=== PATIENT | female | born 1930 | race Caucasian/White ===

== ENCOUNTER 2016-07-07 14:24 | Inpatient (IN) | payer MEDICARE ==
[2016-07-07] VITALS (10 sets, daily range): BP systolic 107–151; BP diastolic 34–70; PULSE 106–130; RESP 20–37; O2SAT 88–99
[~2016-07-07] VITALS: Ht 157.5 cm; Wt 45.5 kg
[~2016-07-07 14:24] MED LIST: ALBU8.5H2 INHALATION; BECL8.7A6 INHALATION; DEXT1DRO8 BOTH_EYES; HYDR-656 PO; LEVO88TA4 PO; PANT40TA3 PO; SUCR1TAB30 PO
--- NOTE | 2016-07-07 14:54 | ED.REPORT ---
HPI-General Illness Date of Service July 07, 2016 ED Provider: Yan Quarles MD Pt is an 85 year old female with a hx of COPD presenting to the ED via EMS complaining of generalized weakness onset today. Associated symptoms include fatigue, SOB, chest pain. Denies any new pain, fever, cough, abdominal pain, nausea, vomiting, or any injury. The pt's medications were recently changed, but medics were unsure what medications. The pt reports that she is usually ambulatory and that she was up and walking earlier today, but is now much too weak. The pt saw her urologist on Friday and was put on tolterodine which she took for the first time this morning. Nursing Notes Stated Complaint: GENERALIZED WEAKNESS Chief Complaint: Generalized weakness Nursing Notes Reviewed: Yes ([employer], [employer]anc[employer] not reconciled) Allergies: Coded Allergies: cephalexin (Verified Allergy, Severe, Anaphylaxis, 10/17/15) DAUGHTER SAYS throat closes up Scheduled Beclomethasone Dipropionate (Qvar) 8.7 Gm Aer.w.adap 1 PUFF INHALATION BID Dextran 70/Hypromellose/Pf (Artificial Tears Drops) 1 Each Droperette 1 DROP BOTH_EYES BID Levothyroxine (Levothyroxine) 88 Mcg Tablet 88 MCG PO DAILY Pantoprazole DR (Pantoprazole DR) 40 Mg Tablet.dr 40 MG PO BIDAC Sucralfate (Carafate) 1 Gm Tablet 1,000 MG PO QID Scheduled PRN Albuterol HFA (Proair HFA) 8.5 Gm Hfa.aer.ad 2 PUFFS INHALATION Q4H PRN PRN For Wheezing hydrOXYzine Hcl (HydrOXYzine Hcl) 25 Mg Tablet 25 MG PO QID PRN PRN For Itching General Time Seen by MD: 14:50 Chief Complaint Weakness Hx Obtained From: Patient, EMS Arrived By: Ambulance Sudden in Onset?: Yes Onset Occurred: Just prior to arrival Symptom Duration: Since onset Severity: Current: No pain currently Severity: Maximum: No pain Recent Healthcare: No recent doctor visit, No recent hospitalization Similar Sx Previous: No Past Medical History Past Medical History Right shoulder pain Hypothyroidism Peptic ulcer disease with GI bleed September 2015 Reports: COPD, GERD Past Surgical History Appendectomy EGD large 3 cm gastric ulcers and antrum with stigmata of bleeding requiring APC and clinical progress normal coagulation therapy on EGD 09/2015 Reports: Cholecystectomy Smoking History Former Smoker Social History [place] in [place] on [address]. She presents with an incomplete POLST indicates DO NOT RESUSCITATE in the setting of cardiac arrest, but is otherwise blank. on 07/07/16 I discussed CODE STATUS with the daughter over the telephone, and unable to clarify the patient is DO NOT RESUSCITATE/DO NOT RESUSCITATE, with limited interventions not including dialysis. IV fluids, medications, etc. are appropriate Other Social History: Good social support Review of Systems Full Review of Systems Constitutional: Reports: Fatigue, Denies: Fever Respiratory: Reports: Shortness of breath, Denies: Non-productive cough Cardiovascular: Reports: Chest pain GI: Denies: Abdominal pain, Nausea, Vomiting Neurologic: Reports: Weakness Complete sys rev & neg: except as marked. Physical Exam Vital Signs Vital Signs Date Time Temp Pulse Resp B/P Pulse Ox O2 Delivery O2 Flow Rate FiO2 07/07/16 18:02 93 Nasal Cannula 07/07/16 18:01 106 37 107/34 88 Room Air 07/07/16 16:12 108 30 128/46 93 Room Air 07/07/16 15:57 38.6 07/07/16 15:35 112 29 131/49 92 Room Air 07/07/16 14:54 36.6 113 31 131/49 92 Room Air Initial VS: Reviewed, Unavailable (no vitals on chart, ordered) Neck: Supple, Non-tender, Full range of motion Abdomen / GI: Soft, Non-tender, No guarding, No rebound, No distention Extremities: Vascular intact, Neuro intact, No swelling, No tenderness Skin: Warm, Dry, No cyanosis General/Constitutional: Awake Appearance / Presentation: Positive: Frail So weak she cannot sit up in bed. Globally weak so that she can barely lift up her legs from the bed although she is usually ambulatory at baseline. Head / Eyes: Normocephalic, PERRL, EOMI, Conjunctiva NL ENT: Atraumatic, Airway patent Mouth: Positive: Mucous membranes dry Respiratory / Chest: Atraumatic, Breath sounds NL, Breath sounds = bilat, No respiratory distress Tachypnic in the low 30s. Not visibly dyspnic. Cardiovascular: No murmurs Heart Rate / Rhythm: Positive: Tachycardia Lower Extremity / Pelvis / MS: Neurologic intact, Vascular intact, No edema Neurologic: Speech NL, No sensory deficits No focal deficits. Demented, poor memory which is baseline. Interpretation & Diagnostics Interpretation & Diagnostics: Guaiac positive Lab Results Interpretation Result Diagram: 07/07/16 1510 07/07/16 1510 Test 07/07/16 15:10 07/07/16 15:38 07/07/16 16:30 White Blood Count 6.6th/mm3 (3.8-10.1) Red Blood Count 4.68mil/mm3 (3.90-5.20) Hemoglobin 14.3g/dL (12.0-15.6) Hematocrit 43.2% (35.0-46.0) Mean Corpuscular Volume 92.3fL (81-100) Mean Corpuscular Hemoglobin 30.6pg (27.0-35.0) Mean Corpuscular Hemoglobin Concent 33.1% (32.0-37.0) Red Cell Distribution Width 13.6% (12.3-15.4) Platelet Count 201bil/L (150-400) Neutrophils (%) (Auto) 97.1% (40-74) Lymphocytes (%) (Auto) 1.5% (14-46) Monocytes (%) (Auto) 0.6% (4-12) Eosinophils (%) (Auto) 0.3% (0-5) Basophils (%) (Auto) 0.2% (0-3) Sodium Level 141mEq/L (134-144) Potassium Level 3.8mEq/L (3.5-5.2) Chloride Level 102mEq/L (97-108) Carbon Dioxide Level 21mmol/L (18-29) Blood Urea Nitrogen 13mg/dL (8-27) Creatinine 0.52mg/dL (0.57-1.00) Estimat Glomerular Filtration Rate 161mL/min (>59) Glucose Level 122mg/dL (60-99) Calcium Level 9.4mg/dL (8.5-10.1) Total Bilirubin 0.7mg/dL (0.0-1.2) Aspartate Amino Transf (AST/SGOT) 752U/L (0-50) Alanine Aminotransferase (ALT/SGPT) 204U/L (0-32) Alkaline Phosphatase 158U/L (25-165) Troponin T < 0.010ug/L (0.0-0.011) Total Protein 7.1g/dL (6.4-8.4) Albumin 3.4g/dL (3.4-5.0) Thyroid Stimulating Hormone (TSH) 0.465uIU/mL (0.450-4.500) Prothrombin Time 10.5sec (8.1-12.5) Prothromb Time International Ratio 0.98ratio Lactic Acid Level 2.8mmol/L (0.4-2.0) Urine Color Yellow (YELLOW) Urine Appearance Clear (CLEAR,HAZY) Urine pH 6.0 (5.0-8.0) Urine Specific [place] 1.015 (1.003-1.035) Urine Protein Tracemg/dL (NEG,TRACE) Urine Glucose (UA) Negativemg/dL (NEGATIVE) Urine Ketones Negativemg/dL (NEGATIVE) Urine Occult Blood Negative (NEGATIVE) Urine Nitrite Negative (NEGATIVE) Urine Bilirubin Negative (NEGATIVE) Urine Urobilinogen Normalmg/dL (NORMAL) Urine Leukocyte Esterase Negative (NEGATIVE) Urine RBC 0-2/hpf (0-2) Urine WBC 0-5/hpf (0-5) Urine Epithelial Cells Moderate/hpf (NONE-MOD) Urine Crystals None seen (NONE SEEN) Urine Bacteria Few/hpf (NONE-FEW) Urine Hyaline Casts None/lpf (NONE) Urine Granular Casts None seen (NONE SEEN) Urine Waxy Casts None seen (NONE SEEN) Urine Red Blood Cell Casts None seen (NONE SEEN) Urine White Blood Cell Casts None seen (NONE SEEN) Urine Mucus Present (None Seen) Urine Trichomonas None seen (NONE SEEN) Urine Yeast None (NONE SEEN) Urinalysis Comment None Urine Culture Reflexed Not indicated Lab Results Interpretation: CBC normal CMP and new LFT abnormalities compared to 2016 Lactic acid elevated UA normal The cultures 2 pending ECG Interpretation ECG Interpretation: Sinus tachycardia. Poor R wave progression anteriorally. No prior for comparison. Time: 15:04 Interpreted by: ED physician X-Ray Chest Interpretation Chest Xray Interpretation: IMPRESSION: 1. Mild interstitial prominence which may be chronic. 2. No focal consolidation. Dictated by: Fortunato Bryant M.D. on 07/07/2016 at 16:26 View: Portable, 1 view Interpretation / Wet Read by: Interpret - Radiologist US Focused Biliary No gallbladder visualized. Exam Performed by: Radiologist Exam Interpreted by: Radiologist Re-Eval/Medical Decision Med Decision/Clinical Course This is an 85-year-old female lives at the adult care facility in [place] who is brought due to complaint of increasing weakness and decreased ambulation from baseline. Patient has no specific complaint but appears mildly ill. She been a bleeding up until 2 days ago, when she saw urologist and had her oxybutynin switched over, and started on in for UTI prophylaxis-all that she has only had one dose of each of these medicines. But she just did not seem right compared to baseline and did not have the energy and brought to the ED. I cannot get her to complaining of any new pain, discomfort, fever, chills, new cough or other complaint. On exam however she has abnormal vital signs the And tachycardic but normotensive. A repeat rectal temp also demonstrates a fever. She has low O2 sats-but this is at baseline for the patient she will usually runs 89-92%, and is on O2 the day and at night. sHe is noted to the desats with exertion at baseline. There is no report of new cough. The mud boss is here. Initial concern was that might be medication induced, but I consult the pharmacy and none of this is suggested by the medication she is taking. She appears rofoundly weak, and moderately ill. . She has a POLST form that indicates DNR/DNI setting of cardiac arrest, but was otherwise incomplete. However I contacted the patient's daughter and confirmed her CODE STATUS at DO NOT INTUBATE, limited interventions, no dialysis, but IV fluids, antibiotics, medications are okay. Clinical focus of the problem was not identified on physical exam. Guaiac was weakly positive, but the patient's hematocrit is normal-she does have a previous history of GI bleed one year ago for gastric ulcer, but her presentation today is more suggestive of an infectious etiology. Her urinalysis was negative. CBC was normal, but lactic acid is elevated also suggestive of sepsis, and LFTs are abnormal. An ultrasound was obtained to evaluate the gallbladder, which turns out to be surgically absent (so I have added this to her list of surgeries). Her chest x-rays indicative of chronic lung disease, and she certainly could hide an infiltrate-but again the caretakers quite clear that her baseline O2 sat is unchanged from her current findings, she has had no new cough. The patient does not complain of a sense of shortness of breath or clear respiratory infection. The abnormal Tylenol levels being added-even though the [facility] records indicate the patient is not received more than 325 mg twice a day in the past several weeks. CT of abdomen is being obtained and on for alternate sources, although the patient's abdominal exam remains clinically benign to me. The patient seemed IV fluids, and empiric antibiotics are being administered. The patient has multiple allergies including cephalexin, penicillin, sulfa, and fluoroquinolones-to the patient's receiving a dose of IV meropenem. Blood cultures being drawn. The patient's being admitted for continued management the case is discussed with the admitting hospitalist. The patient's mud boss is named Cyndee and is available at [phone] for any assistance. Source of Hx: Old records Time of Eval: 15:04 Patient Status: Condition improved Re-Evaluation/Progress Note: Discussed supplemental past medical history with the pt's caregiver. Caregiver reports that the pt has been eating and drinking normally, and was totally ambulatory earlier today. She also reports 2 episodes of diarrhea since yesterday. Her O2 levels are usually in the low 90s, and is sleeps on O2. Time of Eval: 15:27 Patient Status: Condition improved Re-Evaluation/Progress Note: Discussed consultation with the pharmacy about usual side effects of her new medication. Time of Eval: 17:45 Patient Status: Condition improved Re-Evaluation/Progress Note: Discussed lab results and plan for admission. Pt understands and agrees with plan. Time of Eval: 17:56 Patient Status: Condition improved Re-Evaluation/Progress Note: Talked code status with the pt's daughter. She requests DNR DNI, limited interventions. No dialysis no major interventions. Consultation : Referral / Consult Name: Emery Boland MD Consulted With: Hospitalist Call Returned at: 17:55 [employer]er: Will see patient, Agrees with plan, Accepts admit Differential Diagnosis: Negative: Abdominal pain, Acute coronary syndrome, Allergies, Diabetes mellitus, G-tube repair/replacement, Neutropenia, Pneumonia , Urinary tract infection Counseled Regarding: Diagnosis, Lab results, Need for follow-up, When/why to return to ED Discharge & Departure Primary Impression: Generalized weakness Additional Impressions: Sepsis, unspecified organism Elevated lactic acid level Liver function test abnormality Chronic lung disease Disposition: ADMITTED TO HOSPITAL Discharge Condition All VS Reviewed: Yes Condition: Improved Referrals: Tamela Torres PA-C (PCP) Dao Attestation Portions of this note were transcribed by Rhonda Soto. I, Dr. Quarles personally performed the history, physical exam and medical decision-making; I reviewed and confirmed the accuracy of the information in the transcribed note. Signed by: Dao Molina, 07/07/2016 at 1800. copies to: Tamela Torres PA-C, Matthew F MD July 07, 2016 14:54 RHONDA SOTO July 07, 2016 15:03
[2016-07-07] MEDS ORDERED: 0.9% Sodium Chloride 1,000 ML IV ONE ×2 (15:05→17:50)
[2016-07-07 15:29] LABS: BASOPHILS % (AUTO) 0.2 % (0-3); EOSINOPHILS % (AUTO) 0.3 % (0-5); MONOCYTES % (AUTO) 0.6 % (4-12); Mean Corpuscular Hemoglobin 30.6 pg (27.0-35.0); Mean Corpuscular Volume 92.3 fL (81-100); NEUTROPHILS % (AUTO) 97.1 % (40-74); Platelet Count 201 bil/L (150-400)
[2016-07-07 16:22] LABS: INR 0.98 ratio
--- NOTE | 2016-07-07 16:41 | DRSVH ---
PROCEDURE: X-RAY CHEST ONE VIEW, PORTABLE ([id number]) INDICATIONS: tachypnea, weakness TECHNIQUE: One view of the chest was acquired. COMPARISON: None. FINDINGS: Surgical changes and devices: None. Lungs and pleura: No pleural effusions or pneumothorax. There is elevation of the right hemidiaphra gm. Mild interstitial prominence is present without focal consolidation. The right lung base is par tially obscured by the patient's hand. Mediastinum: Mediastinal contours appear normal. Heart size is normal. Bones and chest wall: No suspicious bony lesions. Overlying soft tissues appear unremarkable. IMPRESSION: 1. Mild interstitial prominence which may be chronic. 2. No focal consolidation. Dictated by: Fortunato Bryant M.D. on 07/07/2016 at 16:26 Approved by: Fortunato Bryant M.D. on 07/07/2016 at 16:35
[2016-07-07 16:47] LABS: TROPONIN T < 0.010 ug/L (0.0-0.011)
[2016-07-07 17:11] LABS: APPEARANCE,URINE CLEAR (CLEAR,HAZY); COLOR,URINE YELLOW (YELLOW); OCCULT BLOOD,URINE NEGATIVE (NEGATIVE); UROBILINOGEN,URINE NORMAL (NORMAL)
[2016-07-07] MEDS ORDERED: Meropenem Inj 1,000 MG in IV Premix 1 EACH IV ONE (17:50)
[2016-07-07 18:14] LABS: BASOPHILS % (AUTO) 0.1 % (0-3); EOSINOPHILS % (AUTO) 0.3 % (0-5); MONOCYTES % (AUTO) 3.4 % (4-12); Mean Corpuscular Hemoglobin 30.5 pg (27.0-35.0); Mean Corpuscular Volume 92.4 fL (81-100); Platelet Count 201 bil/L (150-400)
--- NOTE | 2016-07-07 18:14 | DRSVH ---
PROCEDURE: US ABDOMEN ([id number]) INDICATIONS: ?RUQ pain TECHNIQUE: Real-time scanning was performed of the abdominal and retroperitoneal organs, with image documentatio n. COMPARISON: None. FINDINGS: Liver: The left lobe appears slightly enlarged. The hepatic parenchyma is slightly increased in echo genicity. Gallbladder: Surgically absent. Biliary ducts: Intrahepatic bile ducts are non-dilated. Extrahepatic bile duct caliber measures 4 m m. Normal is 6-7 mm or less in diameter, or 10 mm or less post-cholecystectomy. Pancreas: Visualized portions of the pancreas are sonographically normal. Spleen: Spleen is normal in size and homogeneous in echotexture. Kidneys: Right kidney measures 10.2 cm long; left kidney measures 10.2 cm long. No hydronephrosis. Aorta: Visualized aorta is normal in caliber at less than 3 cm. Iliacs: Proximal common iliac arteries are normal in caliber at less than 2.5 cm. IVC: Intrahepatic inferior vena cava is patent. Miscellaneous: No free abdominal fluid. IMPRESSION: 1. Slightly increased hepatic echogenicity statistically likely representing hepatic steatosis. Dictated by: Fortunato Bryant M.D. on 07/07/2016 at 17:59 Approved by: Fortunato Bryant M.D. on 07/07/2016 at 18:07
[2016-07-07] MEDS ORDERED: ACET325C PO (18:18)
[2016-07-07] MEDS ORDERED: BISA10SU61 RC (18:19)
[2016-07-07] MEDS ORDERED: bismatrol PO (18:20)
[2016-07-07] MEDS ORDERED: 0.9% Sodium Chloride 1,000 ML IV SCH ×2 (18:21→19:55)
[2016-07-07] MEDS ORDERED: HYDR-4003 PO (18:21)
[2016-07-07] MEDS ORDERED: LORA0.5T PO (18:21)
[2016-07-07] MEDS ORDERED: DEXT1DRO8 BOTH_EYES (18:22)
[2016-07-07] MEDS ORDERED: CRANACTIN PO (18:23)
[2016-07-07] MEDS ORDERED: IBUP-1827 PO (18:23)
[2016-07-07] MEDS ORDERED: LACT1CAP73 PO (18:24)
[2016-07-07] MEDS ORDERED: MYCC TOP (18:25)
[2016-07-07] MEDS ORDERED: Ondansetron 2 mg/mL 2 mL Inj IVPUSH PRN (18:25)
[2016-07-07] MEDS ORDERED: Alum-Mag Hydrox-Simeth 30 mL Suspension PO PRN (18:25)
[2016-07-07] MEDS ORDERED: FLUT12AE8 IH (18:25)
[2016-07-07] MEDS ORDERED: LATA2.5D6 BOTH_EYES (18:26)
[2016-07-07] MEDS ORDERED: POLY17PO2 PO (18:28)
[2016-07-07] MEDS ORDERED: MULT1CAP33 PO (18:28)
[2016-07-07] MEDS ORDERED: NITR25CA2 PO (18:30)
[2016-07-07] MEDS ORDERED: TOLT4CAP13 PO (18:30)
--- NOTE | 2016-07-07 19:13 | DRSVH ---
PROCEDURE: CT ABDOMEN AND PELVIS WITH CONTRAST ([id number]) INDICATIONS: Sepsis and abnormal liver function tests. TECHNIQUE: After the administration of intravenous contrast, 5 mm thick sections acquired from the diaphragm to the symphysis. 5 mm coronal and sagittal reformats were acquired. For radiation dose reduction, the following was used: automated exposure control, adjustment of mA and/or kV according to patient siz e. COMPARISON: None. FINDINGS: Image quality: There is motion artifact limiting evaluation. ABDOMEN: Lung bases: There is mild dependent atelectasis. There are also a few scattered small groundglass op acities bilaterally suggestive of a mild infectious or inflammatory process. Heart size is normal. There is a small hiatal hernia. Solid organs: There is mild periportal edema in the liver. No discrete focal hepatic lesions. No bi liary ductal dilatation. The gallbladder is surgically absent. The spleen is normal in size. Pancr eas enhances normally. No adrenal nodules. Kidneys demonstrate no hydronephrosis. Peritoneum and bowel: Bowel loops demonstrate normal wall thickness and caliber. No pericecal infla mmatory changes to suggest appendicitis. There is colonic diverticulosis without acute diverticuliti s. No free fluid or air. No loculated fluid collections to suggest an abscess. Nodes and vessels: No retroperitoneal or mesenteric adenopathy by size criteria. Aorta and inferior vena cava are normal in size. Miscellaneous: No ventral hernias. PELVIS: Genitourinary: Bladder wall thickness is normal. Miscellaneous: No inguinal hernias or adenopathy. Bones: No suspicious bony lesions. No vertebral body compression fractures. IMPRESSION: 1. Nonspecific periportal edema in the liver is likely reactive to an infectious or inflammatory pro cess. 2. Diverticulosis without acute diverticulitis. 3. No evidence of intra-abdominal abscess. 4. Scattered small groundglass opacities within the visualized lung bases likely represent a mild in fectious or inflammatory process including possible aspiration. Dictated by: Fortunato Bryant M.D. on 07/07/2016 at 18:58 Approved by: Fortunato Bryant M.D. on 07/07/2016 at 19:06
[2016-07-07] MEDS ORDERED: Polyethylene Glycol (PEG) 17 Gm Powder PO PRN (19:55)
[2016-07-07] MEDS ORDERED: Albuterol-Ipratropium 3 mL Inhalation Solution NEB ONE (21:10)
--- NOTE | 2016-07-07 21:30 | PCM.HPMED ---
Subjective Date of Service July 07, 2016 Primary Provider: Admitting Physician: Emery Boland MD Primary Care Physician: Tamela Torres PA-C Attending Physician: Emery Boland MD Admit Status: From the Emergency Department Chief Complaint: Weakness History of Present Illness: This is an 85-year-old female lives at the adult care facility, [facility] with 24 hours care on [place] who is brought due to complaint of increasing weakness and decreased ambulation from baseline at lunchtime . Patient has no specific complaint but appears ill. She been a bleeding up until 2 days ago, when she saw urologist and had her oxybutynin switched over, and started on Tolterodine friday. She has dementia and is confused at baseline. She is otherwise fully functional with very little help with ambulating, feeding, and toileting. History of COPD, on 2 L nocturnal O2 with Albuterol and Flovent at home. In the ED she was febrile, tachypnic, and tachycardia 38.7 rectal temp, 29 RR and 113 HR. She had an elevated LA of 2.8 and 2.5 after [address] repeat[address] She had CT abd w/con that showed only perihepatic edema (gallbladder absent.) Blood cx x2 and was started on IV Meropenem, and transferred to the [facility]. Review of Systems: : A comprehensive review of systems was conducted with the patient and found to be negative except as above in the History of Present Illness. Allergies Coded Allergies: cephalexin (Verified Allergy, Severe, Anaphylaxis, 10/17/15) DAUGHTER SAYS throat closes up Penicillins (Unverified Allergy, Intermediate, 07/07/16) Sulfa (Sulfonamide Antibiotics) (Unverified Allergy, Intermediate, 07/07/16 ) cefazolin (Unverified Allergy, Intermediate, 07/07/16) latex (Unverified Allergy, Intermediate, 07/07/16) levofloxacin (Unverified Allergy, Intermediate, 07/07/16) meperidine (Unverified Allergy, Intermediate, 07/07/16) rabeprazole (Unverified Allergy, Intermediate, 07/07/16) Home Medications Acetaminophen 325 every 4 when necessary Albuterol HFA 8.5 g 2 puffs every 4 when necessary for wheezing Bisacodyl 10 mg suspension when necessary 30 days Dextran 70-mellitus artificial teardrops both eyes every 4 when necessary Fluticasone 12 g 2 puffs twice a day Hydrocodone acetaminophen 5-325 every 6 hour when necessary pain Ibuprofen 600 mg every 6 when necessary Lactobacillus daily Latanoprost 2.5 mL drops both eyes Levothyroxin 88 g daily Lorazepam 0.5 mg twice a day for anxiety when necessary Multivitamin 2 daily Nitrofurantoin macro Crystal 50 mg daily Nystatin topical cream 15 g twice a day Polyethylene glycol 33 5017 g powder pack daily Tolterodine tartrate ER 4 mg capsule by mouth daily Bismatrol 262 mg daily when necessary heartburn Cranactin 2 tablets by mouth daily PMH Right shoulder pain Hypothyroidism Peptic ulcer disease with GI bleed September 2015 Reports: COPD, GERD Surgical History Appendectomy EGD large 3 cm gastric ulcers and antrum with stigmata of bleeding requiring APC and clinical progress normal coagulation therapy on EGD 09/2015 Reports: Cholecystectomy Family History unable to obtain due to dementia Social History Hx Alcohol Use: No Hx Substance Use: No Smoking Status: Former Smoker Exam Vital Signs Vital Sign - Last Date Time Temp Pulse Resp B/P Pulse Ox O2 Delivery O2 Flow Rate FiO2 07/07/16 19:08 37.6 115 29 127/49 99 Nasal Cannula 7 Exam General: Elderly lady lying in bed, mild-moderate acute distress, well-developed , well-nourished, not appropriately interactive HEENT: Normocephalic, atraumatic. External ears without defect. Pupils equal, round, and reactive to light and accommodation. Anicteric sclerae, moist conjunctivae, and no lid lag. Oropharynx free of erythema and cobble stoning with moist mucosa. Neck: Supple with full range of motion. No jugular venous distension. No bruits. No lymphadenopathy or thyromegaly. Cardiovascular: Tachycardic rate and regular rhythm with no murmurs, rubs, or gallops appreciated Pulmonary: Diffuse wheezes bilaterally, no rhonchi. Normal respiratory effort with no use of accessory muscles on 2L O2 NC. GI: Bowel tones present. Soft, nontender, nondistended. No hepatosplenomegaly or masses appreciated. Extremities: No clubbing, cyanosis, edema, or lymphadenopathy appreciated. Skin: mildly elevated skin temperature, turgor, and texture; no rash, ulcers, or subcutaneous nodules appreciated. Lymph: no cervical or supraclavicular lymphadenopathy MSK: no joint edema or erythema Neurological: Cranial nerves grossly intact. Decreased muscle strength, tone, and bulk. Coordination normal, and sensory function within normal limits, Reflexes not tested. No known gait impairment. Psychiatric: Diminished affect, Waxing and waning conversation, intermittently oriented to person, and time, not to place. Lab and Diagnostics Result Diagram: 07/07/16 1604 07/07/16 1510 X-Rays, CTs and MRIs CT ABDOMEN AND PELVIS WITH CONTRAST IMPRESSION: 1. Nonspecific periportal edema in the liver is likely reactive to an infectious or inflammatory process. 2. Diverticulosis without acute diverticulitis. 3. No evidence of intra-abdominal abscess. 4. Scattered small groundglass opacities within the visualized lung bases likely represent a mild infectious or inflammatory process including possible aspiration. Approved by: Fortunato Bryant M.D. on 07/07/2016 at 19:06 Assessment & Plan This is an 85-year-old female lives at the adult care facility, [facility] with 24 hours care on [place] who is brought due to complaint of increasing weakness and decreased ambulation from baseline at lunchtime . Patient has no specific complaint but appears ill. She been a bleeding up until 2 days ago, when she saw urologist and had her oxybutynin switched over, and started on Tolterodine friday. She has dementia and is confused at baseline. She is otherwise fully functional with very little help with ambulating, feeding, and toileting. History of COPD, on 2 L nocturnal O2 with Albuterol and Flovent at home. Delfino at care facility stated on 07/05/16 patient seemed just a little "off" but the next day at breakfast patient seemed fine until lunch time. She denies cough, nausea, vomiting, diarrhea, chest pain, dizziness. Reports fatigue and loss of appetite. In the ED she was febrile, tachypnic, and tachycardia 38.7 rectal temp, 29 RR and 113 HR. She had an elevated LA of 2.8 and 2.5 after [address] She had CT abd w/con that showed only perihepatic edema (gallbladder absent.) Blood cx x2 and was started on IV Meropenem, and transferred to the [facility]. Daughter Lisseth is currently in [place] and would like to know if she should come back from vacation early, (She is originally due back on Friday.) 1. Respiratory failure with hypoxia, Present on admission. active. - Possibly COPD exacerbation, Pneumonia (viral vs Bacterial, aspiration), Pulmonary embolism, Right Heart Failure - Wells score 1.5, - D-Dimer elevated at 6.08 - CT PE ordered. - ABG ordered - Currently receiving 7 L O2 by MA. - Duo-neb - IV methylprednisone 125mg Q8H for 3 doses. Day team to switch to prednisone after. - Consider Swallow study tomorrow. - Consider ECHO tomorrow. No history of ECHO in the past. 2. Sepsis, present on admission. Active. - Admission - Rectal temp 38.6, HR 112, RR 29, BP 131/49, LA 2.8, Left shift Neuts 97,1, WBC wnl, AST/ALT 752/204 - No clear source of infx. - CTA Chest PE negative for PE. RLL pneumonia present. - LA will trend Q2H. - IV Meropenem, for now. Pt has several ABx allergies. - Blood cx x2 pending. MRSA screen pending - Procalcitonin 16.72. - Sputum cx ordered. - Legionella and S. Pneumo urine antigen ordered. - Viral PCR ordered. - MRSA swab. - IV Fluids, NS at 45ml/hr. Bolus as needed. - ID consult. 3. HCAP, acute, POA - treat as above 4. Elevated Transaminases, Present on admission, Active. - AST/ALT 752/204 - Acetaminophen level was normal. - Consider GGT Other chronic conditions Dementia, present on admission. Active. - Baseline mentation is confused. - no treatment, avoid medication that may worsen confusion COPD, present on admission. Active. - Treatment as above Hypothyroid - Continue home Synthroid 88 g daily. Hx of GI bleed 2nd to 3cm Gastric Duodenal ulcer 2015. - Acetaminophen for mild pain when necessary. Bowel regimen Senna and MiraLAX scheduled and PRN. Zofran when necessary for nausea and vomiting. SubQ heparin held for now. SCDs in place. Disposition: Likely here for > 2 midnights. Dependent upon respiratory status. Will be discharged to [facility] when medically stable. Resuscitation Status: DNR/DNI:Do Not Resuscitate/Intubate Attending Statement The patient was seen and examined together with house staff on 07/07/2016 and I agree with the history, exam and plan as outlined in the note above. JOSE ALLEN DO July 07, 2016 20:03 Heena Felton DO July 08, 2016 03:47
--- NOTE | 2016-07-07 22:02 | DRSVH ---
PROCEDURE: CT ANGIO CHEST PULMONARY EMBOLISM ([id number]) INDICATIONS: Tachycardic/tachypneic TECHNIQUE: After the administration of intravenous contrast, 2 mm thick sections acquired from the pulmonary api andrews to the posterior costophrenic angles. 3-dimensional maximum intensity projection (MIP) coronal a nd sagittal reformats were then acquired through the thorax. For radiation dose reduction, the follo wing was used: automated exposure control, adjustment of mA and/or kV according to patient size. COMPARISON: None. FINDINGS: Image quality: There is motion artifact limiting evaluation. Pulmonary arteries: Pulmonary arteries are normal in size, and demonstrate no intraluminal filling d efects to suggest central pulmonary embolism. Evaluation of subsequent branches is limited by motion artifact. Lungs and pleura: There are moderate to severe centrilobular emphysematous changes. There is a regio n of consolidation in the right lower lobe. Small pleural effusions are also demonstrated with bilat eral compressive atelectasis. There are a few small scattered nodular opacities bilaterally includin g a mill representative nodule in the right upper lobe measuring approximately 8 mm on series 5 image 23. The trachea and central airways appear patent. Mediastinum: Heart size is normal, without pericardial effusion. Thoracic aorta is normal in calibe r and enhancement. There a few mildly prominent mediastinal lymph nodes including subcarinal nodes m easuring up to 1 cm in short axis. Esophagus is normal in caliber, with a small hiatal hernia. Bones and chest wall: No suspicious bony lesions. Ribs and thoracic spine appear intact throughout. Thyroid gland demonstrates no discrete nodules. No axillary or supraclavicular adenopathy. Abdomen: Visualized upper abdominal solid organs appear normal in the early arterial phase of enhanc ement. IMPRESSION: 1. No evidence of central pulmonary embolism with evaluation of subsegmental branches limited by mot ion artifact. 2. Small region of consolidation in the right lower lobe likely representing pneumonia. A few scatt ered small nodular opacities bilaterally also likely reflect an infectious or inflammatory process. 3. Moderate to severe centrilobular emphysematous changes. 4. Small bilateral pleural effusions with associated compressive atelectasis. 5. Mildly enlarged mediastinal lymph nodes are nonspecific but likely reactive. Dictated by: Fortunato Bryant M.D. on 07/07/2016 at 21:29 Approved by: Fortunato Bryant M.D. on 07/07/2016 at 21:56
[2016-07-07] MEDS: 0.9% Sodium Chloride 1,000 ML IV SCH (22:57)
--- NOTE | 2016-07-07 22:58 | ABG ---
DateTimeAnalyzed 22:54:00 -_ pH ____7.415 - 7.350 7.450 pCO2 ___35.3__ -mmHg 35.0 45.0 pO2 ___51.8__ -mmHg 69.0 116 HCO3- ___22.2__ -mmol/L 22.0 26.0 ABE ___-1.4__ -mmol/L -2.0 2.0 tHb ___12.1__ -g/dL O2Hb ___85.9__ -% COHb ____1.3__ -% MetHb ____1.0__ -% sO2 ___87.9__ -% FIO2 ___21.0__ -% Drawn By blf - Date/Time Notified____ 22:58:00 -_ Spontaneous_RR ___28.0__ -b/min Oxygen Device 1 _ROOM AIR - Notified By blf - Notified Whom ___DR. MCCORT - B 758 -mmHg tO2 ___14.6__ -Vol% Jaleel test _Positive -
--- NOTE | 2016-07-07 22:59 | NUR ---
admit pt to floor scooted over to bed, pt able to verify her name but not location or time. pt slimewy, tele ST, did lots of oral care and change very wet brief, pts yessica score 12 protocol started, NS at 45cc/hr started, MRSA and PCR swabs sent, ED sent UA, pt denies any pain but when you turn her she says "ouch" but then denies any pain, labs called to MD, admit done by medical records pt poor historian unable to give accurate medical history, tried orienting pt to call light, room and bed, placed bed alarm on, ABGs drawn and reported to MD, placed pt on isolation for passable pnu. pts daughter updated per MD, multiple allergies
[2016-07-08] VITALS (12 sets, daily range): BP systolic 96–139; BP diastolic 54–78; PULSE 85–120; RESP 16–22; O2SAT 92–98
[2016-07-08] MEDS: Sodium Chloride LOK Flush 10 mL Syringe IVFLUSH SCH ×4 (00:30→22:31)
[2016-07-08] MEDS: MethylprednisoLONE Sodium Succinate 62.5 mg/mL 2 mL Inj IVPUSH SCH ×2 (00:37→08:47)
[2016-07-08] MEDS ORDERED: Artificial Tears 15 mL Ophthalmic Solution BOTH_EYES PRN (03:55)
[2016-07-08] MEDS ORDERED: Albuterol 2.5 mg/3 mL Inhalation Solution NEB PRN (05:05)
[2016-07-08] MEDS: Meropenem Inj 1,000 MG in 0.9% Sodium Chloride 50 ML IV SCH ×3 (06:32→22:47)
[2016-07-08] MEDS ORDERED: NITROFURANTOIN MACROCRYSTAL 25 MG PO SCH (08:30)
[2016-07-08] MEDS: Tolterodine ER 4 mg ER24 Capsule PO SCH (08:47)
[2016-07-08] MEDS: Albuterol-Ipratropium 3 mL Inhalation Solution NEB SCH ×3 (09:54→19:57)
--- NOTE | 2016-07-08 11:02 | CONS ---
[address] [address] CONSULTATION REPORT PATIENT: EMILY CREWS : 1930 MR#: [id number] ADMIT: 07/07/2016 JOB ID: [id number] DATE OF SERVICE: 07/08/[address] Rosa Oscar for this timely consult. REASON FOR CONSULTATION: Weakness and declining mental status in a patient with indirect evidence of severe bacterial infection. HISTORY OF PRESENT ILLNESS: The patient is an 85-year-old woman with underlying fairly severe dementia who resides in an adult living facility on [facility]. She was brought in because she was weak, more confused and unable to get around compared to her baseline. What little history we have indicates that this was all fairly acute and took place over a day or so. The patient was initially apparently more obtunded or somnolent than she is now, and she is now able to easily converse but is really of no value as a historian. She is confused even about where she lives in the adult home on [facility], and has no idea what factors or events led to her transfer to this facility. She currently says she has a severe headache, but otherwise denies basically any and all complaints. This morning she says she has no sore throat, no significant cough, no shortness of breath beyond her chronic baseline shortness of breath. No nausea, vomiting, diarrhea, or dysuria. She tells us that until recently she could get around with a walker. Beyond this basic outline of history from the patient, who has a very poor memory, we have little else to go on in terms of focal symptoms. PAST MEDICAL HISTORY: 1. COPD which has been gradually worsening and now requires home oxygen. 2. Hypothyroidism. 3. Dementia. 4. GERD. 5. Lives in assisted living, not a SNF. SOCIAL HISTORY: The patient is a who lives in assisted living facility. She is an ex-heavy smoker by her report. Does not drink alcohol currently. She has a daughter who is involved in her care who lives somewhere around here, but the patient cannot actually remember where. FAMILY HISTORY: Really unknown to the patient. When asked if she has any relatives with tuberculosis she says she may have, but is unable to say who, when, or where. REVIEW OF SYSTEMS: Done. It was probably of limited value because of the patient's underlying dementia but she stated initially when we interviewed her that she had a mild headache and 2 minutes later said her only complaint was a very severe headache. She denies no visual change, no sore throat. No trouble swallowing. No stiff neck. No significant cough or shortness of breath beyond baseline. No nausea vomiting, diarrhea, dysuria. She does note she has been weaker than normal, but it is unclear if she understands at this point what her baseline is. No skin rash. Remainder of the review of systems negative. PHYSICAL EXAMINATION: Reveals a woman who was febrile when she was admitted yesterday 38.6 now 36.5, she has really been afebrile since admission. Pulse initially quite tachycardic now down to 91, respiratory rate 18, blood pressure 96/54. She is saturating well on 3 L nasal prongs. She is not requiring vasopressor agents. Her mental status is orientation x1 basically. She speaks fluently but really cannot provide much in way of answers about really anything. She has no idea how she arrived at this facility and has trouble remembering at this point where she is. Examination of the head no trauma, no temporal wasting. Eyes without conjunctivitis or scleral icterus. Nose normal. Oral cavity, no thrush or hairy leukoplakia. Neck reasonably supple for her age. Neck without adenopathy. Lungs a few crackles right base with scattered wheezes. Cardiac tones regular rate and rhythm about 90. Abdomen is soft, nontender. No organomegaly. No suprapubic fullness. Patient does not have a Trevino catheter. No notable adenopathy. Extremities with some scattered franky colored macules over the lower legs below the knees which are not typical of venous stasis and do not appear certainly to be acutely infected. She has reasonable peripheral pulses. Her extremities are warm and well perfused. No evidence of synovitis. Neurologically, the patient can move all her extremities. We did not get her up to see if she could walk, however. The nurses note no skin breakdown or decubiti on the back side. No skin rash noted. DIAGNOSTIC STUDIES: Labs include white count normal x2 6700 but with left shift, about 95% segs. Creatinine is currently normal about 0.5. Lactic acid started off at 2.5 and has now declined to 1.4. Pro calcitonin is an impressive 16.7, only one measurement so far. The patient's LFTs are elevated, AST 752, ALT 204 and alk phos 158. Urinalysis without pyuria. Blood cultures are negative, but they are very young less than 24 hours. MRSA screen negative. Respiratory viral PCR negative. Chest x-ray shows no focal consolidation. Abdominal ultrasound done because the LFTs shows what appears to be hepatic steatosis. Abdominal CT shows periportal edema in the liver which is of interest. There is diverticulosis without diverticulitis and no intra-abdominal abscess. I carefully reviewed the abdominal CT scan, it shows small right lower lobe infiltrate which is not impressive, but is seen against a backdrop of very severe emphysema, small bilateral pleural effusions are also noted. IMPRESSION: This is an interesting case of a somewhat demented woman who resides in an adult care facility on [facility]. She was brought here because of weakness and increased confusion and was found to have fever and a left-shifted, but not elevated white count; lactic acidosis, elevated liver function test, and hepatocellular pattern, and high procalcitonin. The source of the possible infection remains a bit unclear to me. As the patient does not appear to be any unusual respiratory distress. Her chest x-ray does not show much, but the CT scan does show a small infiltrate at the right lower lobe, which conceivably could be the cause of these problems. Her abdomen is benign and her abdominal CT not helpful. She has no evidence of urinary tract infection or decubitus ulcer. She has innumerable allergies including PENICILLINS, SULFA, CEPHALOSPORINS, and QUINOLONES. We are not able to find out anything about the drug allergies from the patient and so it makes antibiotic management somewhat difficult and inclines us to use overly broad agents. RECOMMENDATIONS: 1. The patient is currently being treated with meropenem and reluctantly would agree to go along with this because of the multiple drug allergies and the fact she is already tolerating meropenem. 2. Urine antigens for pneumococcus and Legionella have been ordered, but not done. I would do an I and O catheterization if necessary to get those samples as we really do need some help in figuring out what is going on in this case. 3. I would continue with the meropenem for approximately a 5-7 day course and follow serial procalcitonin. 4. In view of the ambiguous nature of the answers regarding TB will order a QuantiFERON Gold. There is certainly no need to place the patient in isolation or be unduly concerned about that diagnosis. 5. Will also order a cryptococcal antigen. 6. Will continue to closely follow this patient with you. LILI
--- NOTE | 2016-07-08 11:56 | NUR ---
Social Work Note - Initial Assessment: D: See Initial Assessment. The Pt is a 85 y/o female that was admitted for generalized weakness, fever, r/o sepsis. The Pt's PCP is FRANCOISE Torres and her primary insurance is Medicare with an AARP Supplement, caregiver reports unknown LTC and no VA benefits. EMR reviewed. DIANE met with the Pt to explain role and discuss discharge planning, DIANE telephone number written on white board. Pt has baseline dementia and was not able to provide any information. DIANE placed call to the Pt's [facility] caregiver Cyndee [phone] to request additional information. Cyndee reports that the Pt lives on [address] at the [facility], she is mostly independent in her ADLS. The Pt has been at this facility since and was at a different [facility] on [address] prior to that. The facility has / caregiving support and assists the Pt with meals, medications, and occasionally transportation. Cyndee reports that caregivers sometimes help the Pt clean up after meals and dressing, if needed. The Pt's daughter also assists with transportation. Cyndee reports that the Pt uses [facility] The Pt has had HH in the past, unknown agency. It is unknown if the Pt has been to a SNF before. Cyndee reports that she will be visiting with the Pt this afternoon. DIANE placed call to the Pt's NOK Lisseth [place] [phone] to provide update and offer support. Lisseth is currently in [place] and is unable to be present at this moment, agreeable for continued contact with Cyndee for any Pt needs. ID involved, see notes. Pt currently on IV Abx. SW will continue to follow. A: Pt who has baseline dementia, independent with most ADLs, and resides in an [facility]. P: The Pt is not medically stable for discharge, will likely be admitted for an additional 1-2+ days as per morning rounds. ID involved, Pt currently on IV Abx. DIANE will continue to follow for potential IV Abx needs. RENATE Rodriguez Assistant Associate Full Professor RENATE Jones Addendum: 07/08/16 at 1222 by TERRI BECKWITH SS Amended: Links added.
--- NOTE | 2016-07-08 12:42 | NUR ---
Update for daughter Returned daughter phone call (Lisseth, ) with pt's permission. Daughter is currently on vacation in [place]. Updated daughter with POC. Transferred phone call to room so pt. and daughter could talk to each other.
--- NOTE | 2016-07-08 14:05 | NUR ---
Mentation, Activity, and Tachycardia Pt. is confused and forgetful. [place] alarm was used in bed as well as in chair. So far, she was able to use call light if she needs assistance. She transferred from bed to BSC and chair with a FWW and 1p moderate assist. She voided once on BSC and also had 1 soft BM. HR sinus tach 100s to 120s. Dr. Blum was notified.
--- NOTE | 2016-07-08 15:36 | NUR ---
Wound Care Wound orders received patient seen at bedside with nursing. 85 yo demented female presents with a nonstageable right lateral ankle ulcer (POA) that is approx 1 cm in diameter, there is no drainage, ulcer covered by a dry scab, this was covered with a mepilex foam dressing which can be changed by nursing q 48 hrs. No other pressure related skin issues are noted. Recommend p500 bed for this patient and frequent repositioning.
--- NOTE | 2016-07-08 15:37 | PCM.PNMED ---
Subjective Date of Service July 08, 2016 Subjective This is an 85-year-old female lives at the adult care facility, [facility] with 24 hours care on [place] who is brought due to complaint of increasing weakness and decreased ambulation from baseline at lunchtime . Currently under treatment for sepsis with uncertain etiology of infection. Hospital day #2. Overnight: No acute events noted since admission. Today: Patient is aware of herself but not of her location. The patient does answer questions but they have little to do with the questions are being asked. She denies fevers, chills, abdominal pain, nausea, vomiting. She denies any cough. She does complain of back pain and heel pain. Remainder review of systems is negative except as noted above. Exam Vital Signs Vital Sign - Last Date Time Temp Pulse Resp B/P Pulse Ox O2 Delivery O2 Flow Rate FiO2 07/08/16 12:47 36.4 120 18 122/60 96 Nasal Cannula 2.00 Intake and Output 07/07/16 07/07/16 07/08/16 Cumulative From/Thru 15:00 23:00 07:00 07/07/16 14:54 - 07/08/16 06:26 Intake Total 2000 ml 421 ml 2421 ml Output Total 200 ml 200 ml Balance 2000 ml 221 ml 2221 ml Intake Oral 50 ml 50 ml IV Total 2000 ml 371 ml 2371 ml Output Urine Total 200 ml 200 ml # Voids 2 2 Exam General: Elderly lady lying in bed, mild-moderate acute distress, well-developed , well-nourished, not appropriately interactive HEENT: Normocephalic, atraumatic. External ears without defect. Pupils equal, round, and reactive to light and accommodation. Anicteric sclerae, moist conjunctivae, and no lid lag. Oropharynx free of erythema and cobble stoning with moist mucosa. Neck: Supple with full range of motion. No jugular venous distension. No bruits. No lymphadenopathy or thyromegaly. Cardiovascular: Tachycardic rate and regular rhythm with no murmurs, rubs, or gallops appreciated Pulmonary: Clear to auscultation bilaterally. Normal respiratory effort with no use of accessory muscles on 2L O2 NC. GI: Bowel tones present. Soft, nontender, nondistended. No hepatosplenomegaly or masses appreciated. Extremities: No clubbing, cyanosis, edema, or lymphadenopathy appreciated. Skin: ulceration on left heel with new clean dressing on wound. Normal skin turgor. Lymph: no cervical or supraclavicular lymphadenopathy MSK: no joint edema or erythema Neurological: Cranial nerves grossly intact. Decreased muscle strength, tone, and bulk. Coordination normal, and sensory function within normal limits, Reflexes not tested. No known gait impairment. Psychiatric: Normal affect and mood, Waxing and waning conversation, intermittently oriented to person and place. Not alert to time. IVs and Medications Medications Reviewed: Medications were reviewed in detail Lab and Diagnostics Result Diagram: 07/07/16 1604 07/07/16 1510 Microbiology Legionella and S. Pneumo urine antigen negative Viral PCR negative X-Rays, CTs and MRIs CT ABDOMEN AND PELVIS WITH CONTRAST IMPRESSION: 1. Nonspecific periportal edema in the liver is likely reactive to an infectious or inflammatory process. 2. Diverticulosis without acute diverticulitis. 3. No evidence of intra-abdominal abscess. 4. Scattered small ground glass opacities within the visualized lung bases likely represent a mild infectious or inflammatory process including possible aspiration. Approved by: Fortunato Bryant M.D. on 07/07/2016 at 19:06 CT ANGIO CHEST PULMONARY EMBOLISM IMPRESSION: 1. No evidence of central pulmonary embolism with evaluation of subsegmental branches limited by motion artifact. 2. Small region of consolidation in the right lower lobe likely representing pneumonia. A few scattered small nodular opacities bilaterally also likely reflect an infectious or inflammatory process. 3. Moderate to severe centrilobular emphysematous changes. 4. Small bilateral pleural effusions with associated compressive atelectasis. 5. Mildly enlarged mediastinal lymph nodes are nonspecific but likely reactive. Dictated by: Fortunato Bryant M.D. on 07/07/2016 at 21:29 Assessment & Plan This is an 85-year-old female lives at the adult care facility, [facility] with 24 hours care on [place] who is brought due to complaint of increasing weakness and decreased ambulation from baseline at lunchtime . Currently under treatment for sepsis with uncertain etiology of infection. Hospital day #2. 1. Hypoxemic respiratory failure, Present on admission. Improving - Etiology unclear. May be COPD exacerbation. Patient does not appear to have pneumonia. - CT angiogram of chest negative for pulmonary embolism. - Duo-neb, prednisone - Swallow eval pending 2. Sepsis, present on admission. Active. - Admission - Rectal temp 38.6, HR 112, RR 29, BP 131/49, LA 2.8. Procalcitonin 16.72. - Possible source of infection may be her foot wound. Foot x ray ordered. - IV Meropenem. ID consulted. - Blood culture x2 pending. MRSA screen negative. - IV Fluids, NS at 45ml/hr. Bolus as needed. 3. Elevated Transaminases in hepatocellular pattern, present on admission, Active. - AST/ALT 752/204 with AST:ALT >2:1 with nonspecific periportal edema in the liver, likely reactive to an infectious or inflammatory process. - Acetaminophen level was normal. No known history of EtOH use. - Follow CMP, consider GI consultation if no improvement. Chronic conditions, present on admission: Dementia, present on admission. Active. - Baseline mentation is confused. - no treatment, avoid medication that may worsen confusion COPD, present on admission. Active. - Treatment as above Hypothyroid - Continue home Synthroid 88 g daily. Acetaminophen for mild pain when necessary. Bowel regimen Senna and MiraLAX scheduled and PRN. Zofran when necessary for nausea and vomiting. SubQ heparin held for now. SCDs in place. Disposition: Anticipate patient will be in the hospital for 2-3 more days as she is evaluated and treated for the above conditions. Will be discharged to [facility] when medically stable. VTE Mechanical Devices: Intermittant Pneumatic CD Resuscitation Status: DNR/DNI:Do Not Resuscitate/Intubate Time spent 40 min Attending Statement Patient was seen and examined by me today. I confirmed pertinent physical exam findings and agree with physical exam as documented. I agree with overall assessment and plan of care as documented. Labs, radiology tests reviewed. Plan of care, medication side effects, home medication, diagnostic procedures and available alternatives were discussed and reviewed with the patient. All questions answered. Patient verbalized understanding, approved and agreed to plan of care. Eva Blum DO July 08, 2016 14:20 Nacho Gómez MD July 08, 2016 16:40
[2016-07-08] MEDS: Heparin 5,000 Unit/mL Inj SUBQ SCH ×2 (16:38→22:44)
--- NOTE | 2016-07-08 17:00 | DRSVH ---
PROCEDURE: X-RAY LEFT FOOT COMPLETE, MINIMUM THREE VIEWS ([id number]) INDICATIONS: possible osteomyelitis TECHNIQUE: 3 views of the foot were acquired. COMPARISON: None. FINDINGS: Bones: No fractures or dislocations. There is mild cortical irregularity and lucency involving the tuft of the first toe with mild soft tissue swelling. Mild midfoot and forefoot joint narrowing shabbir articular osteophyte formation. Bones are osteopenic. Soft tissues: No tibiotalar joint effusion. Achilles tendon appears normal. IMPRESSION: Mild cortical irregularity and lucency involving the tuft of the first digit where there is mild soft tissue swelling. Findings could be related to developing osteomyelitis and close clinic al correlation and followup is recommended. Dictated by: Barrie Menendez [facility] Interpreted: Bc Encarnacion MD on 07/08/2016 at 16:56 Transcribed by: LARRY on 07/08/2016 at 17:00 Approved by: Bc Encarnacion M.D. on 07/08/2016 at 17:08
[2016-07-08] MEDS ORDERED: Haloperidol 5 mg/mL Inj IVPUSH ONE (19:45)
[2016-07-08] MEDS: 0.9% Sodium Chloride 1,000 ML IV SCH (22:30)
[2016-07-09] VITALS (12 sets, daily range): BP systolic 100–148; BP diastolic 45–84; PULSE 76–150; RESP 18–32; O2SAT 85–99
[2016-07-09] MEDS: Albuterol-Ipratropium 3 mL Inhalation Solution NEB SCH ×4 (02:25→21:30)
--- NOTE | 2016-07-09 04:50 | NUR ---
Mentation Pt is confused and unable to re-orient, hx of dementia. Pt pulls O2 off, pulling Telemetry leads off, trying to pull IV out and trying to get OOB. Pt stating that she is leaving and her is waiting downstairs for her, her past away 3 years ago. Pt reminded that she was in the Hospital, but she doesnt believe us. Pt very agitated, Tele ST with HR 110-120s. MD notified and new order for soft wrist restraints and IV Haldol 0.5mg and restraints were applied and Haldol administered. No reduction in agitation or anxiety with Haldol. MD notified again and new order for IV Ativian 0.5mg and was administered. Pt calmed down, stopped fighting the restraints and went to sleep, Tele SR 80-90s now. Continuous pulse oximetry applied O2 sats on 2L NC, remained 96-98% while Pt was sleeping, VS stable.
[2016-07-09 05:53] LABS: BASOPHILS % (AUTO) 0.1 % (0-3); EOSINOPHILS % (AUTO) 0.1 % (0-5); MONOCYTES % (AUTO) 5.9 % (4-12); Mean Corpuscular Hemoglobin 30.8 pg (27.0-35.0); Mean Corpuscular Volume 90.8 fL (81-100); NEUTROPHILS % (AUTO) 85.6 % (40-74); Platelet Count 208 bil/L (150-400)
[2016-07-09] MEDS: Meropenem Inj 1,000 MG in 0.9% Sodium Chloride 50 ML IV SCH ×2 (07:55→17:38)
[2016-07-09] MEDS: predniSONE 20 mg Tablet PO SCH (07:56)
[2016-07-09] MEDS: Sodium Chloride LOK Flush 10 mL Syringe IVFLUSH SCH ×2 (07:56→17:38)
[2016-07-09] MEDS: Tolterodine ER 4 mg ER24 Capsule PO SCH (07:56)
[2016-07-09] MEDS: Heparin 5,000 Unit/mL Inj SUBQ SCH ×2 (07:59→17:42)
--- NOTE | 2016-07-09 10:05 | NUR ---
Evaluation completed. Please go to "Notes" then click on "Assessments and Notes" (bottom left corner of screen). Then select appropriate discipline tab on top of screen.
[2016-07-09] MEDS ORDERED: Diltiazem 5 mg/mL 5 mL Inj IVPUSH ONE (10:25)
--- NOTE | 2016-07-09 10:48 | NUR ---
Telemetry telemetry notified RN of increased HR trend in to 130s to 140s. Pt continues to be confused. reports headache. MD informed of telemetry change. EKG obtained. orders for Diltiazem received and given. Cyndee, caregiver at bedside. heart rate decreased to about 120s after dose. slight decrease in blood pressure. will continue to monitor.
[2016-07-09] MEDS ORDERED: MeTOProlol 1 mg/mL 5 mL Inj IVPUSH ONE (10:55)
--- NOTE | 2016-07-09 11:16 | PROG NOTE ---
[address] [address] PROGRESS NOTE PATIENT: EMILY CREWS : 1930 MR#: [id number] ADMIT: 07/07/2016 JOB ID: [id number] DATE: 07/09/2016 REASON FOR FOLLOWUP: Fever, confusion, possible pneumonia, and possible right foot infection. INTERVAL HISTORY: Overnight, the patient has continued to be somewhat confused. Today at times she is more appropriate and now believes she is in a hospital in [place] which is close to the truth. She thinks it is 2012, however and refuses to name the president. She continues to express bewilderment determine about her predicament and why she is currently restrained in her hospital bed. She states she is having a terrible headache, but it just started. She denies fevers, chills. Denies shortness of breath and denies significant abdominal pain. She denies any skin rash. PHYSICAL EXAMINATION: Reveals a restrained elderly woman who is moderately confused. Temperature 36.3, pulse 101, respiratory rate in the 20s. Blood pressure 116/68, saturating pretty well on 2 L. She is oriented times about -02/25 as she knows she is in a hospital in [facility], but named the wrong one. She does express generalized confusion about the current situation though. The eyes without conjunctivitis. The neck is actually supple. Lungs clear anteriorly. Abdomen is soft, nontender. The right lateral malleolus has a shallow abrasion over it with some underlying erythema, but does not appear especially infected to my eye. The patient can move her extremities and would move her arms more if they were not restrained. LABORATORIES: Include white count which has jumped abruptly from 6 to 17,000. That increase in white count is almost certainly due to the institution of prednisone therapy. The steroids were started for COPD exacerbation. Creatinine 0.41. LFTs include an AST which has fallen from 600 to 160, an ALT which has fallen from 381 to 255 and an alk phos which has dropped from 175 to a normal 152. Procalcitonin was dramatically elevated on the 14th to 16.72. It has not been repeated yet. Urinalysis without pyuria. Urine Legionella negative. Urine pneumococcal antigen negative. Crypto antigen pending. QuantiFERON Gold pending. BioFire on respiratory secretions negative. Blood cultures are negative. IMAGING: Largely confusing. An x-ray of the foot suggested there could be an abnormality of the 1st digit where there is some soft tissue swelling, but this does not correspond to the area we see on physical. CT angiogram was reviewed yesterday and shows a possible subtle right-sided pneumonia which is fairly small. In addition there is changes of severe emphysema and atelectasis. The abdominal CT scan basically showed nothing of interest to explain her infectious presentation. I spoke at length to the patient's daughter who is currently vacationing in [place] and hopes to return early from her vacation. The daughter said that the mother does suffer from dementia definitely and at times becomes quite confused. She said she has previously had episodes of delirium related to urinary tract infections, which resolved with treatment. IMPRESSION: This is a challenging case. This woman has dementia, but is able to get along okay in an adult care facility on [facility]. She is here because of weakness and confusion. She was also found to have left-shifted, but not elevated white count as well as some fever and lactic acidosis. The procalcitonin was very high suggesting a significant bacterial infection. Her CT of the chest shows that she could have a bit of an infiltrate which could reasonably be construed as aspiration type in her right base. There is no evidence for abdominal or urinary tract infection. She does have some tenderness along her right lateral malleolus, but this does not really seem to be enough of an infection to produce these mental status changes. RECOMMENDATIONS: 1. I think the patient should be evaluated for encephalitis. This workup should start with an MRI followed by an LP, but I do not think the patient will hold still for an MRI so a CT scan of the brain, with contrast if feasible, could be followed by a lumbar puncture to be sent for BioFire cell count, glucose, and protein. This was discussed in person with Dr. Blum of the primary team. 2. Would continue with meropenem which will offer broad-spectrum coverage for aspiration pneumonia as well as would provide coverage for meningitis such as listeria pneumococcus or meningococcus, though I find all of these unlikely with her supple neck. 3. I would repeat a procalcitonin every day or two to see if we get a downward trend. 4. I would image her right foot and in particular her right lateral malleolus to see if there is any abnormalities there. 5. Will continue to follow this complex case with you.
--- NOTE | 2016-07-09 11:24 | PCM.PNMED ---
Subjective Date of Service July 09, 2016 Subjective This is an 85-year-old female lives at the adult care facility, [facility] with 24 hours care on [place] who is brought due to complaint of increasing weakness and decreased ambulation from baseline at lunchtime . Currently under treatment for sepsis with uncertain etiology of infection. Hospital day #3. Overnight: The patient was more confused overnight and had to be placed in restrains. Today: The patient appears more confused this morning and continues to answer questions bizarrely. She notes a severe headache. She denies any nausea or vomiting or changes in vision. She also complains of right ear pain. Remainder review of systems is negative except as noted above. Exam Vital Signs Vital Sign - Last Date Time Temp Pulse Resp B/P Pulse Ox O2 Delivery O2 Flow Rate FiO2 07/09/16 10:28 150 124/71 07/09/16 08:51 24 95 Nasal Cannula 2.00 07/09/16 04:57 36.4 Intake and Output 07/08/16 07/08/16 07/09/16 Cumulative From/Thru 15:00 23:00 07:00 07/07/16 14:54 - 07/09/16 06:36 Intake Total 1206 ml 939 ml 4566 ml Output Total 100 ml 150 ml 450 ml Balance 1106 ml 789 ml 4116 ml Intake Oral 660 ml 400 ml 1110 ml IV Total 546 ml 539 ml 3456 ml Output Urine Total 100 ml 150 ml 450 ml # Voids 2 2 6 Exam General: Elderly lady lying in bed, mild-moderate acute distress, well-developed , well-nourished, on two point restraints. HEENT: Normocephalic, atraumatic. External ears without defect. Pupils equal, round, and reactive to light and accommodation. Anicteric sclerae, moist conjunctivae, and no lid lag. Oropharynx free of erythema and cobble stoning with moist mucosa. Ear canals obstructed with ear wax bilaterally. Neck: Supple with full range of motion. No jugular venous distension. No bruits. No lymphadenopathy or thyromegaly. Cardiovascular: Tachycardic rate, irregular rhythm with no murmurs, rubs, or gallops appreciated Pulmonary: Clear to auscultation bilaterally. Normal respiratory effort with no use of accessory muscles on 2L O2 NC. GI: Bowel tones present. Soft, nontender, nondistended. No hepatosplenomegaly or masses appreciated. Extremities: No clubbing, cyanosis, edema, or lymphadenopathy appreciated. Skin: ulceration on left heel with new clean dressing on wound. Normal skin turgor. Lymph: no cervical or supraclavicular lymphadenopathy MSK: no joint edema or erythema Neurological: Cranial nerves grossly intact. Decreased muscle strength, tone, and bulk. Psychiatric: Restrained, not answering most questions appropriately. Patient's caregiver in the room and notes that she is normally fairly confused but this is a bit worse from baseline. IVs and Medications Medications Reviewed: Medications were reviewed in detail Lab and Diagnostics Result Diagram: 07/09/1652407/09/16524 Microbiology Legionella and S. Pneumo urine antigen negative Viral PCR negative X-Rays, CTs and MRIs CT ABDOMEN AND PELVIS WITH CONTRAST IMPRESSION: 1. Nonspecific periportal edema in the liver is likely reactive to an infectious or inflammatory process. 2. Diverticulosis without acute diverticulitis. 3. No evidence of intra-abdominal abscess. 4. Scattered small ground glass opacities within the visualized lung bases likely represent a mild infectious or inflammatory process including possible aspiration. Approved by: Fortunato Bryant M.D. on 07/07/2016 at 19:06 CT ANGIO CHEST PULMONARY EMBOLISM IMPRESSION: 1. No evidence of central pulmonary embolism with evaluation of subsegmental branches limited by motion artifact. 2. Small region of consolidation in the right lower lobe likely representing pneumonia. A few scattered small nodular opacities bilaterally also likely reflect an infectious or inflammatory process. 3. Moderate to severe centrilobular emphysematous changes. 4. Small bilateral pleural effusions with associated compressive atelectasis. 5. Mildly enlarged mediastinal lymph nodes are nonspecific but likely reactive. Dictated by: Fortunato Bryant M.D. on 07/07/2016 at 21:29 Assessment & Plan This is an 85-year-old female lives at the adult care facility, [facility] with 24 hours care on [place] who is brought due to complaint of increasing weakness and decreased ambulation from baseline at lunchtime . Currently under treatment for sepsis with uncertain etiology of infection. Hospital day #3. Encephalopathy, acute superimposed on chronic dementia, present on admission, active -Concern for possible encephalitis or meningitis in an altered patient complaining of headaches -Also no really clear source of infection has been identified. -CT of head ordered, if no evidence of increased ICP, will proceed with LP with relevant studies including PCR. -ID consulted, appreciate input. Sepsis, present on admission. Active. - Admission - Rectal temp 38.6, HR 112, RR 29, BP 131/49, LA 2.8. Procalcitonin 16.72. - Possible source of infection may be her foot wound. Foot x ray showing possible early osteo. MRI ordered. - Alternatively this may be due to encephalitis. - IV Meropenem. ID consulted. Antibiotic day #3. - Blood culture x2 pending. MRSA screen negative. - IV Fluids, NS at 45ml/hr. Bolus as needed. Elevated Transaminases in hepatocellular pattern, present on admission, active. Improving. - AST/ALT 752/204 with AST:ALT >2:1 with nonspecific periportal edema in the liver, likely reactive to an infectious or inflammatory process. - Acetaminophen level was normal. No known history of EtOH use. - Follow CMP, consider GI consultation if no improvement. Hypoxemic respiratory failure, present on admission. Resolved. - Etiology unclear. May be COPD exacerbation. Patient does not appear to have pneumonia. - CT angiogram of chest negative for pulmonary embolism. - Duo-neb, continue prednisone - Swallow eval showing possible aspiration. Likely chronic. Chronic conditions, present on admission: Dementia, present on admission. Active. - Baseline mentation is confused. - no treatment, avoid medication that may worsen confusion COPD, present on admission. Active. - Treatment as above Hypothyroid - Continue home Synthroid 88 g daily. Acetaminophen for mild pain when necessary. Bowel regimen Senna and MiraLAX scheduled and PRN. Zofran when necessary for nausea and vomiting. SubQ heparin held for now. SCDs in place. Disposition: Anticipate patient will be in the hospital for 2-3 more days as she is evaluated and treated for the above conditions. Will likely be discharged to [facility] when medically stable. VTE Mechanical Devices: Intermittant Pneumatic CD Resuscitation Status: DNR/DNI:Do Not Resuscitate/Intubate Attending Statement Patient seen and examined with housestaff. Agree with all attached documentation. Eva Blum DO July 09, 2016 10:36 Jaleel Lawson MD July 11, 2016 07:51
--- NOTE | 2016-07-09 11:25 | NUR ---
Telemetry Pt given IVP metoprolol as ordered by MD. given over about 5 minutes. post bp noted to be up to 123/71. seed technician called and stated possible conversion back to SR 90s-100. MD informed and confirmatory EKG obtained. will continue to monitor.
--- NOTE | 2016-07-09 12:01 | NUR ---
To CT transfer in bed. voice intercept technician informed. pt alert and confused. restraints in place to protect lines. oxygen at 2liters. Ivf infusing. Addendum: 07/09/16 at 1219 by VANDANA CUNNINGHAM RN pt returned to room 2025 at 1219 telemetry monitoring resumed.
--- NOTE | 2016-07-09 12:46 | DRSVH ---
PROCEDURE: CT BRAIN WITHOUT CONTRAST ([id number]) INDICATIONS: AMS, ?encephalitis ?meningitis TECHNIQUE: Noncontrast 4.5 mm thick angled axial sections acquired from the foramen magnum to the vertex, with c oronal reformats. COMPARISON: None. FINDINGS: Image quality: Diagnostic. Brain: There is no acute intra-axial or extra-axial hemorrhage. No extra-axial fluid collection is i dentified. There is no midline shift or mass effect. The orbits are grossly unremarkable. No large areas of diffusely decreased attenuation are evident within the brain to suggest diffuse cer ebral edema. Extensive focal and confluent areas of low attenuation within the supratentorial brain are present, predominantly seen within the periventricular white matter. The ventricles and cortical sulci are moderately prominent Bones: Calvarium and visualized facial bones are grossly intact. The imaged paranasal sinuses and m astoid air cells are clear. IMPRESSION: 1. No acute intracranial hemorrhage. 2. Extensive chronic small vessel ischemic changes and moderate parenchymal volume loss. Dictated by: Mike Zarate M.D. on 07/09/2016 at 11:43 Approved by: Mike Zarate M.D. on 07/09/2016 at 11:44
[2016-07-09 13:12] LABS: Cryptococcal Ag Negative (Negative)
--- NOTE | 2016-07-09 14:44 | NUR ---
NUTRITION ASSESSMENT Assess: 85 YO F admitted for respiratory failure, sepsis, and encephalopathy. Pt with fair PO intake. PMHX: R shoulder pain, hypothyroid, peptic ulcer disease, GI bleed, COPD, GERD, dementia. DIET: Pureed, nectar thick liquids. PO intake 25-50%. ST. LABS: Reviewed. Cr 0.41, AST 160, ALT 255 MEDICATIONS: Reviewed. Prednisone. GI: No BM noted. SKIN: Nonstageable R lateral ankle ulcer. beef cattle specialist following. ANTHROPOMETRICS: Wt: 51.9 kg, BMI 20.9 kg/m2, ESTIMATED NEEDS: COPD/WOUND Calories: 8902-5709 kcal/day (30-40 kcal/kg BW) Protein: 78-93 g/day (1.5-1.8 g/kg BW) NUTRITION DIAGNOSIS: 1) Increased nutrient needs related to increased demand for nutrients as evidenced by COPD. INTERVENTION: 1) Diet advance per speech therapy. 2) Will add nutrition supplements to encourage wound healing and adequate nutrition. MONITOR/EVALUATE: PO intake, diet tolerance, labs, GI/nutrition status. Follow per moderate nutrition risk guidelines.
--- NOTE | 2016-07-09 15:33 | NUR ---
Social Work Note: Continued Discharge Planning Data& Assessment: EMR Reviewed. Per pt is not medically ready for discharge at this time. Pt being followed by ID. DIANE spoke with pt Caregiver Cyndee ([phone]) to check in and assess for any unmet needs. Pt daughter Lisseth is flying in from [place] this week. SW to continue to follow to r/o home health or IV abx needs at time of discharge. Pt caregiver denies any other needs at this time. SW to continue to follow. Plan: Per pt is not medically ready for discharge at this time. SW to continue to follow to r/o home health or IV abx needs at time of discharge. SW to continue to follow. RENATE Jones
--- NOTE | 2016-07-09 16:57 | PCM.PROC ---
Procedure Note Date of Service: July 09, 2016 Pre Procedure Diagnosis: Encephalopathy Provider and Certified Adaptive Physical Educator: Resident: Eva Blum Attending: Jaleel Lawson Indication for Procedure: Encephalopathy, ?encephalitis, ?meningitis Procedural Analgesia: 1 mg Morphine IV 0.5 mg Ativan IV Procedure Details: Anesthesia - local 1% lidocaine Informed consent was obtained from the patient's daughter, Jennifer. The area was prepped and draped in the usual sterile fashion. Using landmarks, a 22 guage spinal needle was inserted in the L4-L5 innerspace. The stylet was removed ~4cc of clear fluid was collected and sent for routine studies. CSF was also sent for CSF PCR. The patient tolerated the procedure well. There was negligible blood loss and no hematoma. Post Procedure Plan: Routine CSF studies, CSF PCR. Attending Statement Patient seen and examined with housestaff. Agree with all attached documentation. . I was present for the entire procedure. Eva Blum DO July 09, 2016 16:57 Jaleel Lawson MD July 11, 2016 07:57
[2016-07-09 17:47] LABS: APPEARANCE,CSF CLEAR (CLEAR); COLOR,CSF COLORLESS (COLORLESS); WHITE BLOOD CELL,CSF 4 /mm3 (0-5)
--- NOTE | 2016-07-09 18:25 | NUR ---
Mentation pt increasingly confused throughout shift, with mild agitation with restraints. Pt stating " you got any scissors, I am tied down in my own home." pt concerned about "people in her home." pt continues to pull at lines and attempt to exit bed. pt calms with one on one care. pt had a number of visitors today, pt seemed to enjoy. pt able to make needs known regarding toileting. pt tolerated LP procedure this afternoon at bedside. pt able to feed self with set up and 1:1 supervision. consuming about 25% of meals. will continue to monitor.
[2016-07-09] MEDS: 0.9% Sodium Chloride 1,000 ML IV SCH (18:33)
--- NOTE | 2016-07-09 23:26 | NUR ---
Heart Rate HR 135-145, paged hospitalist , advised to keep monitoring .
[2016-07-10] VITALS (14 sets, daily range): BP systolic 112–162; BP diastolic 60–127; PULSE 99–128; RESP 25–36; O2SAT 91–99
[2016-07-10] MEDS: Meropenem Inj 1,000 MG in 0.9% Sodium Chloride 50 ML IV SCH ×3 (00:36→16:45)
[2016-07-10] MEDS: Heparin 5,000 Unit/mL Inj SUBQ SCH ×3 (00:36→16:50)
[2016-07-10] MEDS: Sodium Chloride LOK Flush 10 mL Syringe IVFLUSH SCH ×3 (00:36→16:46)
[2016-07-10] MEDS ORDERED: Furosemide 10 mg/mL 4 mL Inj IVPUSH ONE ×2 (03:05→10:10)
--- NOTE | 2016-07-10 03:24 | ABG ---
DateTimeAnalyzed 03:20:00 -_ pH ____7.230 - 7.350 7.450 pCO2 ___66.4__ -mmHg 35.0 45.0 pO2 ___75.3__ -mmHg 69.0 116 HCO3- ___26.8__ -mmol/L 22.0 26.0 ABE ___-1.9__ -mmol/L -2.0 2.0 tHb ___13.4__ -g/dL O2Hb ___91.1__ -% COHb ____0.7__ -% MetHb ____1.1__ -% sO2 ___92.8__ -% FIO2 ___70.0__ -% Drawn By blf - Date/Time Notified____ 03:23:00 -_ Spontaneous_RR ___30.0__ -b/min Oxygen Device 1 _oxy mask - Notified By blf - Notified Whom ___Dr. Fuimaono - B 757 -mmHg tO2 ___17.2__ -Vol% OrderingPhysicianInitials mf - Jaleel test _Positive -
[2016-07-10 03:43] LABS: BASOPHILS % (AUTO) 0 % (0-3); EOSINOPHILS % (AUTO) 0 % (0-5); MONOCYTES % (AUTO) 4.9 % (4-12); Mean Corpuscular Hemoglobin 30.5 pg (27.0-35.0); NEUTROPHILS % (AUTO) 90.6 % (40-74); Platelet Count 316 bil/L (150-400)
[2016-07-10] MEDS: Albuterol-Ipratropium 3 mL Inhalation Solution NEB SCH ×4 (03:45→19:58)
--- NOTE | 2016-07-10 05:50 | NUR ---
HR/Wet Lungs/JVD. Labored breathing, called hospitalist , ordered ABG, Belinda, Natasha , Placed on Hi-Flow , O2 sats , low 90's @ 70% and 70 Liters, Pt mostly non communicative , Lung sounds wet , has JVD on left side, NS @ TKO , Telemetry , Sinus Tach 124-145,
[2016-07-10] MEDS: Tolterodine ER 4 mg ER24 Capsule PO SCH (07:47)
[2016-07-10] MEDS: predniSONE 20 mg Tablet PO SCH (07:48)
--- NOTE | 2016-07-10 09:40 | NUR ---
Pt's condition worsened since yesterday. Pt is currently requiring high flow O2, WBC has increased, and lung sounds are wet. Recommend NPO with meds crushed and oral care for comfort. MD DO [facility] will follow and reassess when pt is appropriate for PO intake. Discussed with RN, who stated pt took meds with no s/s of aspiration this morning.
--- NOTE | 2016-07-10 09:43 | PROG NOTE ---
[address] [address] PROGRESS NOTE PATIENT: EMILY CREWS : 1930 MR#: [id number] ADMIT: 07/07/2016 JOB ID: [id number] DATE: 07/10/2016 INFECTIOUS DISEASE FOLLOW UP NOTE: REASON FOR FOLLOW UP: Mental status changes, respiratory insufficiency in a patient with underlying COPD and extremely elevated procalcitonin of unknown etiology. INTERVAL HISTORY: Overnight, the patient has become more short of breath and required high-flow nasal oxygen to maintain her saturations. She continues to be wildly confused and is requiring restraints. Little useful information is obtained from history taken from the patient today. Her main complaint is that she is restrained but beyond that she is unable to provide us with any useful data. PHYSICAL EXAMINATION: Reveals an elderly woman with high-flow nasal oxygen in place who is waving her arms around and hoping to get out of her restraints. She is otherwise completely confused. Temperature is 37.1, she has been afebrile since the first day of her hospital stay though, three days ago. Pulse is about 110 and irregular. Respiratory rate 30-35 on high-flow oxygen. She is saturating reasonably well on that aggressive respiratory support. Blood pressure 132/77. Examination of the eyes reveals no conjunctivitis. Sinuses nontender. Oral cavity without change. Lungs: Coarse breath sounds bilaterally with a great deal of wheezes and some upper airway noise as well. Cardiac tones are regular rate and rhythm without murmur. The patient's abdomen is relatively benign. Certainly no right upper quadrant tenderness. No left lower quadrant tenderness. She does have a Trevino catheter. It is draining clear yellow urine. No significant skin lesions except an erosive, erythematous lesion is again noted over the right lateral malleolus but this is very subtle and is slightly painful with deep palpation but there is no purulence and the total area of inflammation is only less than 1 cm in diameter. LABORATORIES: Include white count which has jumped to 26,000 though she is on steroids, 90% segs, not surprisingly due to the steroids. Creatinine 0.46. AST continues to settle at 72 as does the ALT is down to 180 and the alk phos has normalized. Albumin 3.6. Urinalysis did not show pyuria. A lumbar puncture we had requested yesterday showed four white cells, slightly elevated protein 67. Normal glucose 88. The CSF multiplex PCR study was entirely negative. Crypto antigen in the blood is likewise negative. Legionella urine antigen negative. Nasopharyngeal PCR for respiratory pathogens negative. Blood cultures negative. MRSA screen negative. Legionella and pneumococcal urine antigens negative. An extensive array of CTs and x-rays were reviewed yesterday. Suffice it to say that a chest x-ray, abdominal ultrasound, abdominal CT, chest CT, foot x-ray and brain CT failed to show any obvious source of infection. Out of all the studies, the abdominal CT may have been the most confusing. It is noted that there is some periportal edema in the liver which might be consistent with an infectious process but beyond that we have little else in the way of evidence as to the primary source of infection in this patient with an extremely elevated procalcitonin and mental status changes. Impression: Encephalopathy due to infection of unclear source RECOMMENDATIONS: 1. Will continue with meropenem which is an overly broad agent but I am not sure how to narrow it given our lack of info about the etiology of what is going. 2. I see no indication for MRSA therapy at this point. 3. Repeat chest x-ray and repeat procalcitonin have been ordered today. 4. If the patient continues to deteriorate or fail to improve, I think the next step would be to repeat the CT scans of the chest, abdomen and pelvis in an attempt to look for a focal source of the infection and very elevated procalcitonin. KARTHIKD
--- NOTE | 2016-07-10 10:00 | ABG ---
DateTimeAnalyzed 09:56:00 -_ pH ____7.360 - 7.350 7.450 pCO2 ___51.5__ -mmHg 35.0 45.0 pO2 ___66.8__ -mmHg 69.0 116 HCO3- ___28.4__ -mmol/L 22.0 26.0 ABE ____2.5__ -mmol/L -2.0 2.0 tHb ___13.3__ -g/dL O2Hb ___91.2__ -% COHb ____0.9__ -% MetHb ____0.8__ -% sO2 ___92.8__ -% FIO2 ___70.0__ -% Drawn By dh - Date/Time Notified____ 10:00:00 -_ Spontaneous_RR ___30.0__ -b/min Liter_Flow ___60.0__ -L/min Oxygen Device 1 _oxy mask - Notified By dh - Notified Whom Dr, [place]anchuk - B 760 -mmHg tO2 ___17.1__ -Vol% Jaleel test _Positive -
--- NOTE | 2016-07-10 11:04 | PCM.PNMED ---
Subjective Date of Service July 10, 2016 Subjective This is an 85-year-old female lives at the adult care facility, [facility] with 24 hours care on Katerine who is brought due to complaint of increasing weakness and decreased ambulation from baseline at lunchtime . Currently under treatment for sepsis with uncertain etiology of infection and worsening mentation. Hospital day #4. Overnight: The patient went into respiratory distress and was placed on high flow oxygen due to hypoxemic and hypercarbic respiratory. She was restrained so BPAP could not placed. Today: Patient able to talk only very quietly today. She does state she has a hard time breathing but dose note that it may be a bit better than earlier tonight. Remainder review of systems is not obtainable due altered mentation. Exam Vital Signs Vital Sign - Last Date Time Temp Pulse Resp B/P Pulse Ox O2 Delivery O2 Flow Rate FiO2 07/10/16 08:50 113 36 92 Nasal Cannula 60 70 07/10/16 07:16 132/77 07/10/16 03:58 37.1 Intake and Output 07/09/16 07/09/16 07/10/16 Cumulative From/Thru 15:00 23:00 07:00 07/07/16 14:54 - 07/10/16 06:57 Intake Total 1537 ml 620 ml 6723 ml Output Total 200 ml 1000 ml 1600 ml 3250 ml Balance -200 ml 537 ml -980 ml 3473 ml Intake Oral 900 ml 0 ml 2010 ml IV Total 637 ml 620 ml 4713 ml Output Urine Total 200 ml 1000 ml 1600 ml 3250 ml # Voids 6 Exam General: Elderly lady lying in bed, mild-moderate acute distress, well-developed , well-nourished, on two point restraints. HEENT: Normocephalic, atraumatic. External ears without defect. Pupils equal, round, and reactive to light and accommodation. Anicteric sclerae, moist conjunctivae, and no lid lag. Oropharynx free of erythema and cobble stoning with moist mucosa. Breathing with her mouth wide open. Neck: Supple with full range of motion. No jugular venous distension. No bruits. No lymphadenopathy or thyromegaly. Cardiovascular: Tachycardic rate, regular rhythm with no murmurs, rubs, or gallops appreciated Pulmonary: Crackles heard throughout. No accessory muscles of respiration noted. However there is notable increased work of breathing. GI: Bowel tones present. Soft, nontender, nondistended. No hepatosplenomegaly or masses appreciated. Extremities: No clubbing, cyanosis, edema, or lymphadenopathy appreciated. Skin: ulceration on left heel with new clean dressing on wound. Normal skin turgor. Lymph: no cervical or supraclavicular lymphadenopathy MSK: no joint edema or erythema Neurological: Cranial nerves grossly intact. Decreased muscle strength, tone, and bulk. Psychiatric: Restrained, not answering most questions appropriately. IVs and Medications Medications Reviewed: Medications were reviewed in detail Lab and Diagnostics Result Diagram: 07/10/1631407/10/16314 Microbiology Legionella and S. Pneumo urine antigen negative Viral PCR negative X-Rays, CTs and MRIs CT ABDOMEN AND PELVIS WITH CONTRAST IMPRESSION: 1. Nonspecific periportal edema in the liver is likely reactive to an infectious or inflammatory process. 2. Diverticulosis without acute diverticulitis. 3. No evidence of intra-abdominal abscess. 4. Scattered small ground glass opacities within the visualized lung bases likely represent a mild infectious or inflammatory process including possible aspiration. Approved by: Fortunato Bryant M.D. on 07/07/2016 at 19:06 CT ANGIO CHEST PULMONARY EMBOLISM IMPRESSION: 1. No evidence of central pulmonary embolism with evaluation of subsegmental branches limited by motion artifact. 2. Small region of consolidation in the right lower lobe likely representing pneumonia. A few scattered small nodular opacities bilaterally also likely reflect an infectious or inflammatory process. 3. Moderate to severe centrilobular emphysematous changes. 4. Small bilateral pleural effusions with associated compressive atelectasis. 5. Mildly enlarged mediastinal lymph nodes are nonspecific but likely reactive. Dictated by: Fortunato Bryant M.D. on 07/07/2016 at 21:29 Assessment & Plan This is an 85-year-old female lives at the adult care facility, [facility] with 24 hours care on Katerine who is brought due to complaint of increasing weakness and decreased ambulation from baseline at lunchtime . Currently under treatment for sepsis with uncertain etiology of infection. Hospital day #4. Acute hypoxemic and hypercapnic respiratory failure on chronic COPD, not preset on admission, active -CT angiogram of chest negative for pulmonary embolism. -Duo-neb, continue prednisone -Swallow eval showing possible aspiration. Likely chronic. -Lasix x1 given, will repeat as patient has not had significant urine output. -CXR revealing of pulmonary edema on preliminary look -ECHO ordered. -IVF stopped Encephalopathy, acute superimposed on chronic dementia, present on admission, active -Concern for possible encephalitis or meningitis in an altered patient complaining of headaches but CT negative for acute process. LP negative for infectious pathology. -ID consulted, appreciate input. Sepsis, present on admission. Active. Improving. - Admission - Rectal temp 38.6, HR 112, RR 29, BP 131/49, LA 2.8. Procalcitonin 16.72. - Likely increase in WBC is secondary to steroids. - Possible source of infection may be her foot wound. Foot x ray showing possible early osteo. MRI ordered but cannot be performed due to restrain use and now high flow. - Alternatively patient may have a more insidious aspiration pneumonia. - IV Meropenem. ID consulted. Antibiotic day #4. - Blood culture x2 pending. MRSA screen negative. Elevated Transaminases in hepatocellular pattern, present on admission, active. Improving. - AST/ALT 752/204 with AST:ALT >2:1 with nonspecific periportal edema in the liver, likely reactive to an infectious or inflammatory process. - Acetaminophen level was normal. No known history of EtOH use. - Follow CMP, consider GI consultation if no improvement. Chronic conditions, present on admission: Dementia, present on admission. Active. - Baseline mentation is confused. - no treatment, avoid medication that may worsen confusion COPD, present on admission. Active. - Treatment as above Hypothyroid - Continue home Synthroid 88 g daily. Acetaminophen for mild pain when necessary. Bowel regimen Senna and MiraLAX scheduled and PRN. Zofran when necessary for nausea and vomiting. SubQ heparin held for now. SCDs in place. Disposition: Anticipate patient will be in the hospital for 2-3 more days as she is evaluated and treated for the above conditions. Will likely be discharged to [facility] when medically stable. VTE Mechanical Devices: Intermittant Pneumatic CD Resuscitation Status: DNR/DNI:Do Not Resuscitate/Intubate Attending Statement Patient seen and examined with housestaff. Agree with all attached documentation. Eva Blum DO July 10, 2016 10:47 Jaleel Lawson MD July 11, 2016 08:02
--- NOTE | 2016-07-10 11:30 | DRSVH ---
PROCEDURE: X-RAY CHEST ONE VIEW, PORTABLE ([id number]) INDICATIONS: fluid overload? resp failure TECHNIQUE: One view of the chest was acquired. COMPARISON: [facility], CT, CT ANGIO CHEST PE, 07/07/2016, 21:13. [facility] , CR, XR CHEST 1VW (PORTABLE), 07/07/2016, 15:31. FINDINGS: Surgical changes and devices: None. Lungs and pleura: Interval increase in mid/basilar patchy air space opacities. Small pleural effusio ns present. No pneumothorax. Mediastinum: Mediastinal contours appear normal. Heart size is normal. Bones and chest wall: No suspicious bony lesions. Overlying soft tissues appear unremarkable. IMPRESSION: Bilateral interstitial and airspace infiltrate in lower lobes suspicious for pneumonia and/or pulmona ry edema. Small effusions. Dictated by: Barrie HORN Interpreted: David Osorio MD on 07/10/2016 at 11:28 Transcribed by: MATEUSZ on 07/10/2016 at 11:30 Approved by: David Osorio M.D. on 07/10/2016 at 17:40
--- NOTE | 2016-07-10 15:40 | DRSVH ---
[facility] [address] [place] [address] Echocardiogram Report Name: EMILY CREWS Date: Height: 62 in Hospital Exam Location: [facility] Weight: 114 lb Gender: Female BSA: 1.5 m2 : 1930 Age: 85 yrs BP: 132/77 mmHg Reason For Study: Congestive Heart Failure Ordering Physician: Performed By: Allyson Charles Referring Physician: Tamela Torres Interpretation Summary The left ventricle is grossly normal size.The ejection fraction is estimated to be 20-25%. There is moderate to severe global hypokinesis of the left ventricle. There is inferior wall akinesis. The right ventricle is grossly normal size. The right ventricular systolic function is normal. There is moderate to severe mitral regurgitation. There is moderate to severe tricuspid regurgitation.Right ventricular systolic pressure is estimated to be 39 mmHg plus the clinically estimated CVP which cannot be estimated on this exam. Procedure: A two-dimensional transthoracic echocardiogram with color flow and Doppler was performed. The study quality was technically adequate. There is no prior echocardiogram noted for this patient. The heart rate ranged between 104-108 bpm during the study. Left Ventricle: The left ventricle is grossly normal size. There is normal left ventricular wall thickness. A false chord is noted (normal variant). There is no thrombus. The ejection fraction is estimated to be 20-25%. There is inferior wall akinesis. There is moderate to severe global hypokinesis of the left ventricle. Diastolic function could not be accurately assessed due to tachycardia. Right Ventricle: The right ventricle is grossly normal size. The right ventricular systolic function is normal. Atria: The left atrium is moderately dilated. Right atrial size is normal. The interatrial septum is intact with no evidence for an atrial septal defect. The interatrial septum bows toward right atrium consistent with elevated left atrial pressure. Mitral Valve: The mitral valve leaflets appear mildly thickened, but open well. The mitral valve leaflets are mildly calcified. There is mild mitral annular calcification. The mitral valve chordae are thickened and/or calcified. There is no evidence of mitral valve prolapse. There is moderate to severe mitral regurgitation. Aortic Valve: The aortic valve is not well visualized. There is no hemodynamically significant valvular aortic stenosis. No aortic regurgitation is present. Tricuspid Valve: The tricuspid valve leaflets are thickened and/or calcified, but open well. There is moderate to severe tricuspid regurgitation. Right ventricular systolic pressure is estimated to be 39 mmHg plus the clinically estimated CVP which cannot be estimated on this exam. Pulmonic Valve: The pulmonic valve is not well visualized. Great Vessels: The aortic root is normal size. There is aortic root sclerosis/calcification. The dimensions of the ascending aorta are normal. The inferior vena cava was not visualized. Pericardium/ Pleura There is no pericardial effusion. There is an anterior echo-free space consistent with a fat pad. There is a small right-sided pleural effusion. MMode/2D Measurements & Calculations LVIDd: 4.9 cm LA dimension: 3.7 cm RA long axis: 3.8 cm Ao root diam LVIDs: 4.3 cm FS: 12.4 % LA A2 area: 14.5 cm RA area: 13.8 cm Aortic Jxn IVSd: 0.85 cm LA A4 area: 16.6 cm RA vol: 42.1 ml LVPWd: 0.86 cmLA length (vol): 4.2 cm RA : 28.0 ml/m asc Aorta Diam LA vol: 49.4 ml RVDd major: 5.0 cm LA vol index: 32.8 ml/m2 EDV(MOD-sp2) LV shrestha. diameter/BSA LV sys. diameter/BSA RVD1 (basal) (cm/m^2): 3.2 (cm/m^2): 2.8 : 2.6 cm ESV(MOD-sp2) EF(MOD-sp2) RVD2 (mid) : 2.5 cm Doppler Measurements & Calculations Ao V2 max MV P1/2t: 24.8 msec Med Peak E' Nhan TR max nhan : 80.2 cm/sec : 310.6 cm/sec Ao max PG MR ERO: 0.06 cm2 Lat Peak E' Nhan TR max PG : 2.6 mmHg : 38.6 mmHg Ao mean PG Pulm A Revs Dur : 1.5 mmHg MV V2 mean MV P1/2t max nhan Ao V2 mean MR flow rate : 53.1 cm/sec : 57.4 cm/sec MV mean PG Ao V2 VTI: 15.7 cm : 29.9 cm3/sec MVA(P1/2t): 8.9 cm2 MR PISA radius MV V2 VTI : 0.36 cm : 11.2 cm Reading Physician:PHIL
[2016-07-11] VITALS (14 sets, daily range): BP systolic 123–148; BP diastolic 63–82; PULSE 89–155; RESP 20–33; O2SAT 94–98
[2016-07-11] MEDS: Sodium Chloride LOK Flush 10 mL Syringe IVFLUSH SCH ×3 (00:46→16:53)
[2016-07-11] MEDS: Meropenem Inj 1,000 MG in 0.9% Sodium Chloride 50 ML IV SCH ×3 (00:46→16:54)
[2016-07-11] MEDS: Heparin 5,000 Unit/mL Inj SUBQ SCH ×3 (00:47→16:54)
[2016-07-11] MEDS: Albuterol-Ipratropium 3 mL Inhalation Solution NEB SCH ×4 (02:13→20:15)
--- NOTE | 2016-07-11 06:27 | NUR ---
Energy/tele/Mentation Pt had improved energy over prior shifts, was conversant, had to be reminded why she was on restraints, had to be reminded she had grande and did not need to go to toilet. for the first several hours she was constantly using her call light , not able to remember why she needed to remain in bed. Sandy Hospitalist , got order for ativan, .5 Mg Q4/ agitation, gave one time. Pt was able to sleep , HR was below 100 while asleep, O2 sat high 90's RR 25-30. lungs still crackly but can hear air movement better than before. Tele S-Tach, Hi-Joey 60 L & 60%. Pt has to have restraints or she will remove it .
[2016-07-11] MEDS: Tolterodine ER 4 mg ER24 Capsule PO SCH (08:13)
[2016-07-11] MEDS: predniSONE 20 mg Tablet PO SCH (08:13)
[2016-07-11 08:48] LABS: BASOPHILS % (AUTO) 0.2 % (0-3); EOSINOPHILS % (AUTO) 0.1 % (0-5); MONOCYTES % (AUTO) 7.8 % (4-12); Mean Corpuscular Hemoglobin 30.6 pg (27.0-35.0); Platelet Count 196 bil/L (150-400)
--- NOTE | 2016-07-11 10:53 | PROG NOTE ---
[address] [address] PROGRESS NOTE PATIENT: EMILY CREWS : 1930 MR#: [id number] ADMIT: 07/07/2016 JOB ID: [id number] DATE: 07/11/2016 INFECTIOUS DISEASE FOLLOWUP NOTE: REASON FOR FOLLOWUP: Pneumonia with encephalopathy in an elderly female with underlying dementia. INTERVAL HISTORY: Overnight, the patient reports increasing cough. She continues to be somewhat short of breath. She denies fevers, chills, sweats, or abdominal pain. When asked regarding her overall condition, she gives a one-word answer, "lousy." PHYSICAL EXAMINATION: Reveals an elderly woman sitting up in bed. She is a bit more alert and oriented perhaps than yesterday. Her fevers have also resolved, and she is now afebrile for three days. Temperature 36.8, pulse about 110, respiratory rate in the mid 20s. She is on some high-flow nasal cannula. Blood pressure 148/73. She is saturating well on that high-flow nasal cannula. Oriented x2 today which doubles yesterday's. She is able to supply more intelligible answers to questions in general. She appears mildly short of breath. She does have some rattling upper respiratory sounds, which are easily heard across the room. Eyes without scleral icterus. Oral cavity without change. Lungs with rales bilaterally in the lower half, really, of the lung brand. Cardiac tones: Regular rate and rhythm but tachycardic. Abdomen distended but nontender throughout. No skin rash noted. LABORATORIES: Include white count 12.7, down from 26,000 yesterday, and her diff with 90% segs yesterday and only 75% today. So, considerable improvement in her CBC. Today's procalcitonin has fallen by half as compared to yesterday. It is down to 1.5, and that reflects a big drop from 17 only four days ago. Serologic studies are negative including crypto antigen, urine and pneumococcal urine antigens. Cerebrospinal fluid PCR panel was negative as part of her encephalitis workup. A nasopharyngeal PCR panel also completely negative. IMAGING: Includes a chest radiograph done yesterday which shows diffuse interstitial and airspace infiltrates in the lower lobes consistent with either pneumonia or pulmonary edema. I personally reviewed these radiographs and I find it difficult to tell whether this is primarily congestive heart failure or pneumonia but there are bilateral lower lobe primarily interstitial infiltrates worse on the right than the left which certainly could be consistent with pneumonia and, in particular, perhaps consistent with an aspiration pneumonia. IMPRESSION: This is an unfortunate elderly woman with multiple medical problems, who was admitted with increasing respiratory difficulty and mental status changes. She has underlying baseline dementia as well. At this point, it is becoming reasonably clear, I think, that much of her deterioration is due to a respiratory tract infection, as reflected by her pulmonary infiltrates, leukocytosis and profoundly elevated procalcitonin. She is rapidly improving on meropenem, which is an odd initial choice for antibiotic, but the patient has many drug allergies and we cannot ferret out the nature of these allergies because of her underlying dementia. She has tolerated this carbapenem drug. It is overly broad. It is certainly a powerful drug in terms of treatment of aspiration pneumonia. RECOMMENDATIONS: 1. Will continue with meropenem for a total course of approximately seven days. 2. Will continue to follow this patient with you.
--- NOTE | 2016-07-11 12:04 | PCM.PNMED ---
Subjective Date of Service July 11, 2016 Subjective This is an 85-year-old female lives at the adult care facility, [facility] with 24 hours care on [address] who is brought due to complaint of increasing weakness and decreased ambulation from baseline at lunchtime . Currently under treatment for sepsis with uncertain etiology of infection, worsening mentation, aspiration and HFrEF. Hospital day #5. Overnight: No acute events. Today: Patient was sleeping this morning. The patient daughter arrived from [place] this morning and I was able to meet with her. She was updated on her mother's declining condition and her newly diagnosed severe heart failure. Upon our discussion the patient's daughter, who is her DPOA, would like to proceed with hospice and would like to have an informational visit tomorrow but would like to continue with treatment today. Remainder review of systems is not obtainable due altered mentation. Exam Vital Signs Vital Sign - Last Date Time Temp Pulse Resp B/P Pulse Ox O2 Delivery O2 Flow Rate FiO2 07/11/16 08:41 113 28 96 Nasal Cannula 60 60 07/11/16 08:09 148/73 07/11/16 04:02 36.8 Intake and Output 07/10/16 07/10/16 07/11/16 Cumulative From/Thru 15:00 23:00 07:00 07/07/16 14:54 - 07/11/16 05:54 Intake Total 0 ml 160 ml 6883 ml Output Total 1550 ml 700 ml 5500 ml Balance -1550 ml -540 ml 1383 ml Intake Oral 0 ml 0 ml 2010 ml IV Total 160 ml 4873 ml Output Urine Total 1550 ml 700 ml 5500 ml # Voids 6 # Bowel Movements 0 0 Exam General: Elderly lady lying in bed, mild-moderate acute distress, well-developed , well-nourished, on two point restraints. HEENT: Normocephalic, atraumatic. External ears without defect. Pupils equal, round, and reactive to light and accommodation. Anicteric sclerae, moist conjunctivae, and no lid lag. Oropharynx free of erythema and cobble stoning with moist mucosa. Breathing with her mouth wide open. On high flow oxygen. Neck: Supple with full range of motion. No jugular venous distension. No bruits. No lymphadenopathy or thyromegaly. Cardiovascular: Tachycardic rate, regular rhythm with no murmurs, rubs, or gallops appreciated Pulmonary: Crackles heard throughout. No accessory muscles of respiration noted. However there is notable increased work of breathing. GI: Bowel tones present. Soft, nontender, nondistended. No hepatosplenomegaly or masses appreciated. Extremities: No clubbing, cyanosis, edema, or lymphadenopathy appreciated. Skin: ulceration on left heel with new clean dressing on wound. Normal skin turgor. Lymph: no cervical or supraclavicular lymphadenopathy MSK: no joint edema or erythema Neurological: Cranial nerves grossly intact. Decreased muscle strength, tone, and bulk. Psychiatric: Restrained, not answering most questions appropriately. Lab and Diagnostics Result Diagram: 07/11/1682907/11/16829 Microbiology Legionella and S. Pneumo urine antigen negative Viral PCR negative X-Rays, CTs and MRIs CT ABDOMEN AND PELVIS WITH CONTRAST IMPRESSION: 1. Nonspecific periportal edema in the liver is likely reactive to an infectious or inflammatory process. 2. Diverticulosis without acute diverticulitis. 3. No evidence of intra-abdominal abscess. 4. Scattered small ground glass opacities within the visualized lung bases likely represent a mild infectious or inflammatory process including possible aspiration. Approved by: Fortunato Bryant M.D. on 07/07/2016 at 19:06 CT ANGIO CHEST PULMONARY EMBOLISM IMPRESSION: 1. No evidence of central pulmonary embolism with evaluation of subsegmental branches limited by motion artifact. 2. Small region of consolidation in the right lower lobe likely representing pneumonia. A few scattered small nodular opacities bilaterally also likely reflect an infectious or inflammatory process. 3. Moderate to severe centrilobular emphysematous changes. 4. Small bilateral pleural effusions with associated compressive atelectasis. 5. Mildly enlarged mediastinal lymph nodes are nonspecific but likely reactive. Dictated by: Fortunato Bryant M.D. on 07/07/2016 at 21:29 Cardiac Echo Impressions Interpretation Summary The left ventricle is grossly normal size.The ejection fraction is estimated to be 20-25%. There is moderate to severe global hypokinesis of the left ventricle. There is inferior wall akinesis. The right ventricle is grossly normal size. The right ventricular systolic function is normal. There is moderate to severe mitral regurgitation. There is moderate to severe tricuspid regurgitation.Right ventricular systolic pressure is estimated to be 39 mmHg plus the clinically estimated CVP which cannot be estimated on this exam. Assessment & Plan This is an 85-year-old female lives at the adult care facility, [facility] with 24 hours care on Katerine who is brought due to complaint of increasing weakness and decreased ambulation from baseline at lunchtime . Currently under treatment for sepsis with uncertain etiology of infection. Hospital day #5. Acute hypoxemic and hypercapnic respiratory failure on chronic COPD secondary to acute HFrEF, not preset on admission, active -CT angiogram of chest negative for pulmonary embolism. -Duo-neb, continue prednisone for one more day -Swallow eval showing possible aspiration. Likely chronic. -CXR revealing of pulmonary edema -ECHO showing severe reduction in EF at 20% with severe TR -40 mg Lasix IV BID in an effort to titrate the patient off high flow. -Patient's daughter would like to have an informational hospice visit tomorrow and proceed with hospice at home. Encephalopathy, acute superimposed on chronic dementia, present on admission, active -Concern for possible encephalitis or meningitis in an altered patient complaining of headaches but CT negative for acute process. LP negative for infectious pathology. -ID consulted, appreciate input. -Worsening aspiration, patient has been made NPO Sepsis, present on admission. Active. Improving. - Admission - Rectal temp 38.6, HR 112, RR 29, BP 131/49, LA 2.8. Procalcitonin 16.72. - Possible source of infection may be her foot wound. Foot x ray showing possible early osteo. MRI ordered but cannot be performed due to restrain use and now high flow. - Alternatively patient may have a more insidious aspiration pneumonia. - IV Meropenem. ID consulted. Antibiotic day #5 of 7. - Blood culture x2 pending. MRSA screen negative. Elevated Transaminases in hepatocellular pattern, present on admission, active. Improving. - AST/ALT 752/204 with AST:ALT >2:1 with nonspecific periportal edema in the liver, likely reactive to an infectious or inflammatory process. - Acetaminophen level was normal. No known history of EtOH use. - Follow CMP, consider GI consultation if no improvement. Chronic conditions, present on admission: Dementia, present on admission. Active. - Baseline mentation is confused. - no treatment, avoid medication that may worsen confusion Hypothyroid - Continue home Synthroid 88 g daily. Acetaminophen for mild pain when necessary. Bowel regimen Senna and MiraLAX scheduled and PRN. Zofran when necessary for nausea and vomiting. SubQ heparin held for now. SCDs in place. Disposition: Patient will likely be in the hospital for 1-2 more days as she is treated for the above conditions and hospice is set up. VTE Prophylaxis: Sub-Q Heparin (Unfractionated) VTE Mechanical Devices: Intermittant Pneumatic CD Resuscitation Status: DNR/DNI:Do Not Resuscitate/Intubate Attending Statement Patient seen and examined with house staff. Agree with all attached documentation. Eva Blum DO July 11, 2016 11:55 Jaleel Lawson MD July 17, 2016 08:04
[2016-07-11] MEDS: Furosemide 10 mg/mL 4 mL Inj IVPUSH SCH ×2 (13:30→20:58)
--- NOTE | 2016-07-11 14:08 | NUR ---
Social Work: Continued Discharge Planning D: Pt discussed in am rounds. Pt is not doing well clinically. Family has arrived and would like a hospice info visit tomorrow. SEWER CLEANER provided referral to [facility]. They are reviewing and will call SEWER CLEANER back with info visit time. A: Pt who is from [facility] on [address]. P: Evolving; RENATE to update pt's family with hospice info visit once obtained from [facility]. RENATE Malcolm Addendum: 07/11/16 at 1655 by MIRTHA GOODMAN SS SEWER CLEANER spoke with the pt's daughter about request for hospice info visit. They are requesting a meeting at 10:00am. RENATE updated Shelbi with [facility]. Pt's daughter states that their plan for the patient is to return to her [facility] with hospice. They have already spoken with the pt's caregiver, Cyndee about this. They would like for her to have a hospital bed delivered before discharge. Cyndee will be at the info visit to help facilitate conversation about pt's care and DME needs post discharge.
[2016-07-11] MEDS: MeTOProlol 1 mg/mL 5 mL Inj IVPUSH SCH ×2 (14:35→20:57)
[2016-07-11] MEDS ORDERED: 0.9% Sodium Chloride 250 ML ONE (16:40)
--- NOTE | 2016-07-11 18:57 | NUR ---
O2/Restraints/HR Pt's SPO2 sats in the mid to upper 90s on high flow nasal cannula at 60% and 60L. Pt removed own O2 during shift change, SPO2 sats in the low 80s on RA, restraints reapplied in a more effective position, continues to intermittently attempts to remove O2, made aware, restraints order continued, family arrived who were updated on situation. notified of Pt family arrival who came and spoke with family, hospice info visit requested, S.W. made aware. Pt's HR in sinus rhythm/tach in the 90s/100s at the beginning of the shift with brief increases to the 150s-170s, Pt agitated/restless at this time, given PRN lorazepam IV, HR accelerations decreased to the 110s/120s for several hours before increasing again intermittently to the 150s-170s, Pt appeared less restless/agitated at this time, made aware, monty IV metoprolol pushes added to Pt's eMAR, Pt received IV metoprolol and HR decreased to the 90s/100s. At ~1515, Pt converted to a fib, notified, Pt appeared to convert back to sinus again prior to shift change, oncoming NOC RN made aware.
--- NOTE | 2016-07-11 22:38 | NUR ---
Hospice Meeting Time Spoke with pt's daughter and found out that she and the pt are to have a meeting regarding hospice on 07/12/2016 at 1000.
--- NOTE | 2016-07-11 22:52 | NUR ---
O2/Mentation Pt continues to pick at the hi-genevieve nasal cannula and quickly desats into the 70s-80s. Pt is frequently reoriented to where she is and why she is here. Pt continues to request fluids PO but due to aspiration risk the pt is unable to have them at this time. Pt denies pain when asked but continues to be very restless. Addendum: 07/12/16 at 0502 by EHSAN FIELDS RN RT has been able to titrate pt's supplemental O2 throughout the shift. Currently, the pt is on 45L/FiO2 55% with SpO2 >92%. Pt was given 0.5mg of ativan to help decrease the pt's restlessness/anxiety. Since pt was given the 0.5mg ativan pt has been able to rest and the pt's picking at her lines and hi-flow has greatly decreased.
[2016-07-12] VITALS (17 sets, daily range): BP systolic 134–139; BP diastolic 58–71; PULSE 78–112; RESP 21–36; O2SAT 92–98
[2016-07-12] MEDS: Sodium Chloride LOK Flush 10 mL Syringe IVFLUSH SCH ×3 (00:30→16:30)
[2016-07-12] MEDS: Heparin 5,000 Unit/mL Inj SUBQ SCH ×3 (01:24→16:30)
[2016-07-12] MEDS: Meropenem Inj 1,000 MG in 0.9% Sodium Chloride 50 ML IV SCH ×3 (01:25→20:18)
[2016-07-12] MEDS: MeTOProlol 1 mg/mL 5 mL Inj IVPUSH SCH ×4 (02:30→20:24)
[2016-07-12] MEDS: Albuterol-Ipratropium 3 mL Inhalation Solution NEB SCH ×4 (05:00→19:59)
[2016-07-12] MEDS: Tolterodine ER 4 mg ER24 Capsule PO SCH (08:30)
[2016-07-12] MEDS: predniSONE 20 mg Tablet PO SCH (08:30)
[2016-07-12 09:33] LABS: BASOPHILS % (AUTO) 0.3 % (0-3); EOSINOPHILS % (AUTO) 0.3 % (0-5); MONOCYTES % (AUTO) 8.4 % (4-12); Mean Corpuscular Hemoglobin 30.6 pg (27.0-35.0); Mean Corpuscular Volume 94.9 fL (81-100); NEUTROPHILS % (AUTO) 78.3 % (40-74); Platelet Count 221 bil/L (150-400)
[2016-07-12] MEDS: Furosemide 10 mg/mL 4 mL Inj IVPUSH SCH (10:07)
--- NOTE | 2016-07-12 10:16 | DRSVH ---
PROCEDURE: X-RAY CHEST ONE VIEW, PORTABLE ([id number]) INDICATIONS: PNEUMONIA TECHNIQUE: One view of the chest was acquired. COMPARISON: [facility], CR, XR CHEST 1VW (PORTABLE), 07/10/2016, 9:54. FINDINGS: Surgical changes and devices: None. Lungs and pleura: Small pleural effusions there has been interval decrease in perihilar and basilar a irspace opacities. Mediastinum: Mediastinal contours appear normal. Heart size is normal. Bones and chest wall: No suspicious bony lesions. Overlying soft tissues appear unremarkable. IMPRESSION: Small pleural effusions with interval decrease in the mid/basilar interstitial opacities suggesting resolving pneumonia. Dictated by: Barrie Menendez RRA Interpreted: Bc Encarnacion MD on 07/12/2016 at 10:15 Transcribed by: LARRY on 07/12/2016 at 10:16 Approved by: Bc Encarnacion M.D. on 07/12/2016 at 14:27
[2016-07-12] MEDS ORDERED: KCl 40 mEq/D5W 500 mL 40 MEQ in IV Premix 500 EACH IV ONE (11:30)
--- NOTE | 2016-07-12 11:55 | PROG NOTE ---
[address] [address] PROGRESS NOTE PATIENT: EMILY CREWS : 1930 MR#: [id number] ADMIT: 07/07/2016 JOB ID: [id number] DATE: 07/12/2016 REASON FOR FOLLOW UP: Respiratory failure requiring high-flow nasal oxygen with bilateral infiltrates likely due to aspiration pneumonia. INTERVAL HISTORY: Recall this is the unfortunate, 85-year-old woman, with underlying COPD, dementia and established during this admission, congestive heart failure. She was admitted with confusion and fever. An evaluation for meningoencephalitis turned out to be negative and, likewise, we see no evidence for abdominal disease, diarrheal disease or UTI. Clearly, the patient's main problem is respiratory as she has had a cough and increasing shortness of breath requiring high-flow nasal oxygen. Today, we find the patient lying in bed, with high-flow nasal oxygen going. She says that she feels "not so hot." She denies other specific symptoms, but is really not very conversational and, this likely reflects her underlying dementia with superimposed severe medical illness. PHYSICAL EXAMINATION: Reveals an afebrile, very ill-appearing woman, lying supine in her hospital bed. Temp 36.4, pulse 78, respiratory rate mid 20s, blood pressure 137/69. She is saturating pretty well but requiring high-flow oxygen as mentioned. Mucous membranes are dry. Eyes without conjunctivitis. Lungs with bilateral rales and rhonchi at the bases. Cardiac tones regular rate and rhythm. Abdomen soft and nontender. No new skin rash. The right lateral malleolus ulcer was again examined. There is a small ulcer there with surrounding cellulitis but it looks unimpressive, and is certainly not the cause of this sequence of events. LABORATORIES: Include a white count which was last done yesterday, 12.7. We ordered a repeat today and it is not yet done. That was a big decline from 26 the day prior, however. Creatinine yesterday was 0.41. LFTs yesterday were coming down nicely. ALT, which had been approaching 300 was down to 100 yesterday. Yesterday's procalcitonin actually is showing a big decline and a repeat is pending. Remember her procalcitonin was nearly 17 five days ago. It was 3 three days ago, and yesterday 1.5, so a big and steady decline in her procalcitonin. Today's chest x-ray was just done and it shows right greater than left infiltrate, not dramatically different from prior films. It may be slightly better. It is unclear how much this represents scarring versus acute disease as she does have underlying COPD. IMPRESSION: This is a complex woman admitted with fever, shortness of breath, mental status changes, who has underlying dementia, severe left ventricular dysfunction and chronic obstructive pulmonary disease. By the numbers, she is improving with the meropenem therapy for aspiration pneumonia, as her white count, procalcitonin, fevers are all responding. Unfortunately she remains quite ill on high-flow nasal oxygen and is confused and unable to really answer questions or interact in a meaningful way. From an Infectious Disease point of view, it seems the proper course is to continue the meropenem to complete an eight day course which would end on the or , and then reassess her procalcitonin, white count and chest x-ray, with probable stop of antibiotics at that time. From a broader perspective, I wonder where we are going with this 85-year-old woman who weighs 45 kg and appears very chronically ill and emaciated. We now know that she has severe underlying pulmonary disease as well as severe left ventricular dysfunction and underlying dementia. How aggressive to be in this situation is unclear, and the patient is certainly not fit to be transferred anywhere while on high-flow oxygen. I wonder if Palliative Care should become involved in this case. RECOMMENDATIONS: 1. Continue with meropenem through Friday, and will reassess on the morning of the , with probable move to stop meropenem at that time. 2. Continue to follow white count, procalcitonin, and respiratory status. 3. Consider involving Palliative/Hospice care.
--- NOTE | 2016-07-12 12:01 | NUR ---
NUTRITION FOLLOW-UP: Assess: 85 YO F admitted with mental status changes, respiratory failure requiring high-flow nasal oxygen with bilateral infiltrates likely due to aspiration pneumonia. Speech Therapy downgraded her status to NPO 07/09, due to chronic aspiration. Family meeting with Hospice today for informational visit. They would like to discharge to patient's [facility] with Hospice in place. PMHX: R shoulder pain, hypothyroid, peptic ulcer disease, GI bleed, COPD, GERD, dementia. DIET: NPO x 3 D. Poor PO 2 D prior. LABS: Reviewed. Na 154, K+ 2.7, CO2 37, BUN 34, Cr 0.44, Glu 138, ALT 76. MEDICATIONS: Reviewed. Prednisone, morphine, lasix, synthroid. GI: No BM noted x 5 D. SKIN: Nonstageable R lateral ankle ulcer. human resources specialist following. ANTHROPOMETRICS: Wt: 45.5 kg, BMI 18.0 kg/m2. Admit weight: 51.9 kg, BMI 20.9 kg/m2, ESTIMATED NEEDS: COPD/WOUND Calories: 6019-0764 kcal/day (30-40 kcal/kg BW) Protein: 78-93 g/day (1.5-1.8 g/kg BW) NUTRITION DIAGNOSIS: 1) Increased nutrient needs related to increased demand for nutrients as evidenced by COPD - PERSISTS. 2) Inadequate oral intake related to chronic aspiration, as evidenced by NPO status per ST order. INTERVENTION: 1) Will sign off at this time due to imminent discharge to [facility] with Hospice. MONITOR/EVALUATE: PO intake, diet tolerance, labs, GI/nutrition status. Follow per high nutrition risk guidelines.
[2016-07-12] MEDS ORDERED: Haloperidol 5 mg/mL Inj IVPUSH PRN (12:15)
--- NOTE | 2016-07-12 12:15 | PCM.PNMED ---
Subjective Date of Service July 12, 2016 Subjective This is an 85-year-old female lives at the adult care facility, [facility] with 24 hours care on [place] who is brought due to complaint of increasing weakness and decreased ambulation from baseline at lunchtime . Currently under treatment for sepsis with uncertain etiology of infection, worsening mentation, aspiration and HFrEF. Hospital day #6. Overnight: Patient continue to be on high flow and in restraints. Patient had an episode of tachycardia that responded well to Ativan. Today: The patient's daughter, who is her DPOA, met with hospice this morning and would like to proceed with hospice. The patient stated this morning that she is feeling short of breath. Remainder review of systems is not obtainable due altered mentation. Exam Vital Signs Vital Sign - Last Date Time Temp Pulse Resp B/P Pulse Ox O2 Delivery O2 Flow Rate FiO2 07/12/16 09:33 Supplement Oxygen 07/12/16 08:00 94 30 139/58 95 07/12/16 05:39 45 50 07/12/16 04:19 36.4 Intake and Output 07/11/16 07/11/16 07/12/16 Cumulative From/Thru 15:00 23:00 07:00 07/07/16 14:54 - 07/12/16 06:33 Intake Total 157 ml 192 ml 7232 ml Output Total 1550 ml 1325 ml 8375 ml Balance -1393 ml -1133 ml -1143 ml Intake Oral 0 ml 0 ml 2010 ml IV Total 157 ml 192 ml 5222 ml Output Urine Total 1550 ml 1325 ml 8375 ml # Voids 6 # Bowel Movements 0 0 Exam General: Elderly lady lying in bed, mild-moderate acute distress, well-developed , well-nourished, on two point restraints. HEENT: Normocephalic, atraumatic. External ears without defect. Pupils equal, round, and reactive to light and accommodation. Anicteric sclerae, moist conjunctivae, and no lid lag. Oropharynx free of erythema and cobble stoning with moist mucosa. Breathing with her mouth wide open. On high flow oxygen. Neck: Supple with full range of motion. No jugular venous distension. No bruits. No lymphadenopathy or thyromegaly. Cardiovascular: Tachycardic rate, regular rhythm with no murmurs, rubs, or gallops appreciated Pulmonary: Crackles heard throughout. No accessory muscles of respiration noted. However there is notable increased work of breathing. GI: Bowel tones present. Soft, nontender, nondistended. No hepatosplenomegaly or masses appreciated. Extremities: No clubbing, cyanosis, edema, or lymphadenopathy appreciated. Skin: ulceration on left heel with new clean dressing on wound. Normal skin turgor. Lymph: no cervical or supraclavicular lymphadenopathy MSK: no joint edema or erythema Neurological: Cranial nerves grossly intact. Decreased muscle strength, tone, and bulk. Psychiatric: Restrained, not answering most questions appropriately. IVs and Medications Medications Reviewed: Medications were reviewed in detail Lab and Diagnostics Result Diagram: 07/12/1692407/12/16924 Microbiology Legionella and S. Pneumo urine antigen negative Viral PCR negative X-Rays, CTs and MRIs CT ABDOMEN AND PELVIS WITH CONTRAST IMPRESSION: 1. Nonspecific periportal edema in the liver is likely reactive to an infectious or inflammatory process. 2. Diverticulosis without acute diverticulitis. 3. No evidence of intra-abdominal abscess. 4. Scattered small ground glass opacities within the visualized lung bases likely represent a mild infectious or inflammatory process including possible aspiration. Approved by: Fortunato Bryant M.D. on 07/07/2016 at 19:06 CT ANGIO CHEST PULMONARY EMBOLISM IMPRESSION: 1. No evidence of central pulmonary embolism with evaluation of subsegmental branches limited by motion artifact. 2. Small region of consolidation in the right lower lobe likely representing pneumonia. A few scattered small nodular opacities bilaterally also likely reflect an infectious or inflammatory process. 3. Moderate to severe centrilobular emphysematous changes. 4. Small bilateral pleural effusions with associated compressive atelectasis. 5. Mildly enlarged mediastinal lymph nodes are nonspecific but likely reactive. Dictated by: Fortunato Bryant M.D. on 07/07/2016 at 21:29 Cardiac Echo Impressions Interpretation Summary The left ventricle is grossly normal size.The ejection fraction is estimated to be 20-25%. There is moderate to severe global hypokinesis of the left ventricle. There is inferior wall akinesis. The right ventricle is grossly normal size. The right ventricular systolic function is normal. There is moderate to severe mitral regurgitation. There is moderate to severe tricuspid regurgitation.Right ventricular systolic pressure is estimated to be 39 mmHg plus the clinically estimated CVP which cannot be estimated on this exam. Assessment & Plan This is an 85-year-old female lives at the adult care facility, [facility] with 24 hours care on [place] who is brought due to complaint of increasing weakness and decreased ambulation from baseline at lunchtime . Currently under treatment for sepsis with uncertain etiology of infection. Hospital day #6. Acute hypoxemic and hypercapnic respiratory failure on chronic COPD secondary to acute HFrEF, not preset on admission, active -CT angiogram of chest negative for pulmonary embolism. -Duo-neb, continue prednisone for one more day -Swallow eval showing possible aspiration. Likely chronic. -CXR revealing of pulmonary edema -ECHO showing severe reduction in EF at 20% with severe TR -Hold Lasix as patient is in hypovolemic hypovolemic hypernatremia and hypokalemia. Will replace. -Transition to comfort care and hospice. -Morphine PRN dyspnea or pain. Encephalopathy, acute superimposed on chronic dementia, present on admission, active -Concern for possible encephalitis or meningitis in an altered patient complaining of headaches but CT negative for acute process. LP negative for infectious pathology. -ID consulted, appreciate input. -Worsening aspiration, patient has been made NPO. -Restraints as necessary to keep high flow on. -Haldol PRN agitation. Sepsis, present on admission. Active. Improving. - Admission - Rectal temp 38.6, HR 112, RR 29, BP 131/49, LA 2.8. Procalcitonin 16.72. - Possible source of infection may be her foot wound. Foot x ray showing possible early osteo. MRI ordered but cannot be performed due to restrain use and now high flow. - Alternatively patient may have a more insidious aspiration pneumonia. - IV Meropenem. ID consulted. Antibiotic day #6 of 7. - Blood culture x2 negative. MRSA screen negative. Elevated Transaminases in hepatocellular pattern, present on admission, active. Improving. - AST/ALT 752/204 with AST:ALT >2:1 with nonspecific periportal edema in the liver, likely reactive to an infectious or inflammatory process. - Acetaminophen level was normal. No known history of EtOH use. Chronic conditions, present on admission: Dementia, present on admission. Active. - Baseline mentation is confused. - no treatment, avoid medication that may worsen confusion Hypothyroid - Continue home Synthroid 88 g daily. Acetaminophen for mild pain when necessary. Bowel regimen Senna and MiraLAX scheduled and PRN. Zofran when necessary for nausea and vomiting. SubQ heparin held for now. SCDs in place. Disposition: Patient will likely be in the hospital for 1-2 more days as she is treated for the above conditions and hospice is set up. VTE Prophylaxis: Sub-Q Heparin (Unfractionated) VTE Mechanical Devices: Intermittant Pneumatic CD Resuscitation Status: DNR/DNI:Do Not Resuscitate/Intubate Time spent 20 minutes Attending Statement I have seen and evaluated patient at bedside in addition to directly supervising care provided by resident physician. I agree with above documentation. Antibiotics continued through weekend to treat acute infection as per ID, with the intention of transitioning to hospice care ideally when medically stable. Eva Blum DO July 12, 2016 11:48 Vikram Aguilar DO July 12, 2016 15:53
[2016-07-13] VITALS (18 sets, daily range): PULSE 76–109; RESP 14–30; O2SAT 92–97
[2016-07-13] MEDS: Sodium Chloride LOK Flush 10 mL Syringe IVFLUSH SCH ×3 (00:30→16:30)
[2016-07-13] MEDS: Heparin 5,000 Unit/mL Inj SUBQ SCH ×3 (00:30→16:30)
[2016-07-13] MEDS: MeTOProlol 1 mg/mL 5 mL Inj IVPUSH SCH ×5 (02:30→20:30)
[2016-07-13] MEDS: Meropenem Inj 1,000 MG in 0.9% Sodium Chloride 50 ML IV SCH ×3 (02:51→16:34)
[2016-07-13] MEDS: Albuterol-Ipratropium 3 mL Inhalation Solution NEB SCH ×4 (05:04→20:47)
--- NOTE | 2016-07-13 05:30 | NUR ---
O2/Pain/IV/Rest Pt has been titrated down on the high-flow by RT sarbjit and is currently at 40L/FiO2 40% with SpO2 >92%. Pt has c/o pain in both arms where the restraints are and particularly where the new IV site was placed yesterday on the right wrist by IV therapy. IV site was checked for patency and any s/s of phlebitis or irritation caused by the fluids running through the IV site. Pt has been able to rest well through most of the shift. Pt's HR remains 70s-low 100s and pt's RR is 24-32. Pt did c/o air hunger along with pain this AM and received IVP morphine.
--- NOTE | 2016-07-13 07:38 | NUR ---
Donor Referral Rule-Out Per request of paraffiner the Donor Referral Service was called since pt is on comfort care. Due to age pt is not suitable for donation.
[2016-07-13] MEDS: Tolterodine ER 4 mg ER24 Capsule PO SCH ×2 (08:30→08:32)
--- NOTE | 2016-07-13 14:26 | NUR ---
Am medications At first scanned pts am medications because she was alert and mumbling with me. While doing mouth care realized the pt is unable to follow commands. I feel it is unsafe to administer am medications crushed in applesauce from what I see when performing mouth care. Will inform MD upon rounding.
--- NOTE | 2016-07-13 14:50 | PCM.PNMED ---
Subjective Date of Service July 13, 2016 Subjective Patient seen and examined at bedside. She remains in 2 point restraint due to repeated attempts to remove high flow nasal cannula. When asked how she is feeling she replies "not so hot". States wrists are bothering her the restraint. Nose is uncomfortable of high flow oxygen. And her mouth is dry. Nursing had tried without success to remove restraints earlier today as patient repeatedly tries to remove high flow oxygen. She has been denying any food by mouth, unable to drink either due to confusion and inability to understand what is being offered her. Denies any acute pain at least, diaphragmatic wrists to the restraint. She is otherwise profoundly demented and difficult to obtain complete history from. Exam Vital Signs Vital Sign - Last Date Time Temp Pulse Resp B/P Pulse Ox O2 Delivery O2 Flow Rate FiO2 07/13/16 12:00 76 16 92 [place] 40 07/13/16 11:45 40 07/12/16 16:32 36.5 138/71 Intake and Output 07/12/16 07/12/16 07/13/16 Cumulative From/Thru 15:00 23:00 07:00 07/07/16 14:54 - 07/13/16 05:23 Intake Total 432 ml 499 ml 8163 ml Output Total 200 ml 200 ml 8775 ml Balance 232 ml 299 ml -612 ml Intake Oral 50 ml 2060 ml IV Total 382 ml 499 ml 6103 ml Output Urine Total 200 ml 200 ml 8775 ml # Voids 6 # Bowel Movements 0 0 General: Alert, Cooperative, Moderate Distress, Other (patient is thin, during malnourished, lying in hospital bed and 2 point restraint. ) Mouth: Mucous Membranes Dry Chest & Lungs: Coarse breath sounds Cardiovascular: Exam Unremarkable Extremities: No cyanosis/clubbing/edma bilat Neurological: Other (baseline dementia otherwise nonfocal examination) IVs and Medications Medications Reviewed: Medications were reviewed in detail Lab and Diagnostics Result Diagram: 07/12/1692407/12/16924 Microbiology Legionella and S. Pneumo urine antigen negative Viral PCR negative X-Rays, CTs and MRIs CT ABDOMEN AND PELVIS WITH CONTRAST IMPRESSION: 1. Nonspecific periportal edema in the liver is likely reactive to an infectious or inflammatory process. 2. Diverticulosis without acute diverticulitis. 3. No evidence of intra-abdominal abscess. 4. Scattered small ground glass opacities within the visualized lung bases likely represent a mild infectious or inflammatory process including possible aspiration. Approved by: Fortunato Bryant M.D. on 07/07/2016 at 19:06 CT ANGIO CHEST PULMONARY EMBOLISM IMPRESSION: 1. No evidence of central pulmonary embolism with evaluation of subsegmental branches limited by motion artifact. 2. Small region of consolidation in the right lower lobe likely representing pneumonia. A few scattered small nodular opacities bilaterally also likely reflect an infectious or inflammatory process. 3. Moderate to severe centrilobular emphysematous changes. 4. Small bilateral pleural effusions with associated compressive atelectasis. 5. Mildly enlarged mediastinal lymph nodes are nonspecific but likely reactive. Dictated by: Fortunato Bryant M.D. on 07/07/2016 at 21:29 Cardiac Echo Impressions Interpretation Summary The left ventricle is grossly normal size.The ejection fraction is estimated to be 20-25%. There is moderate to severe global hypokinesis of the left ventricle. There is inferior wall akinesis. The right ventricle is grossly normal size. The right ventricular systolic function is normal. There is moderate to severe mitral regurgitation. There is moderate to severe tricuspid regurgitation.Right ventricular systolic pressure is estimated to be 39 mmHg plus the clinically estimated CVP which cannot be estimated on this exam. Assessment & Plan This is an 85-year-old female lives at the adult care facility, [facility] with 24 hours care on [place] who is brought due to complaint of increasing weakness and decreased ambulation from baseline at lunchtime . Currently under treatment for sepsis with uncertain etiology of infection. Hospital day #7. Acute hypoxemic and hypercapnic respiratory failure on chronic COPD secondary to acute HFrEF, not preset on admission, active -CT angiogram of chest negative for pulmonary embolism. -Duo-neb, continue prednisone for one more day -Swallow eval showing possible aspiration. Likely chronic. -CXR revealing of pulmonary edema -ECHO showing severe reduction in EF at 20% with severe TR -Hold Lasix as patient is in hypovolemic hypovolemic hypernatremia and hypokalemia. Will replace. -Transition to comfort care following completion of antibiotic therapy , based on discussion with daughter and POA and subsequent transfer to hospice early next week. -Morphine PRN dyspnea or pain. - Given discomfort of high flow nasal cannula, we will do everything possible to wean patient 2 more comfortable breathing apparatus, even if this should produce some degree of hypoxia which will be preferentially addressed with morphine rather than restarting more aggressive oxygenating therapies. This will hopefully accomplish the removal of patient's 2 point restraints which are causing significant distress and discomfort at this time. Encephalopathy, acute superimposed on chronic dementia, present on admission, active -Concern for possible encephalitis or meningitis in an altered patient complaining of headaches but CT negative for acute process. LP negative for infectious pathology. -ID consulted, appreciate input. -Worsening aspiration, patient has been made NPO - Given continue medical management with intravenous antibiotics through weekend at daughter's request we will restart fluids at this time so patient adequately clears antibiotic and remains medically stable through treatment, plan to discontinue intravenous fluids in addition to other medical therapies with completion of antibiotic course on Friday. . -Restraints as necessary but every attempt will be made to discontinue a conjunction with discontinuation of high flow oxygen. -Haldol PRN agitation. Sepsis, present on admission. Active. Improving. - Admission - Rectal temp 38.6, HR 112, RR 29, BP 131/49, LA 2.8. Procalcitonin 16.72. - Possible source of infection may be her foot wound. Foot x ray showing possible early osteo. MRI ordered but cannot be performed due to restrain use and now high flow. - Alternatively patient may have a more insidious aspiration pneumonia. - IV Meropenem. ID consulted. Antibiotic day #7 of 7. - Blood culture x2 negative. MRSA screen negative. Elevated Transaminases in hepatocellular pattern, present on admission, active. Improving. - AST/ALT 752/204 with AST:ALT >2:1 with nonspecific periportal edema in the liver, likely reactive to an infectious or inflammatory process. - Acetaminophen level was normal. No known history of EtOH use. - No longer trending liver functions as patient is moving towards comfort-based approach Chronic conditions, present on admission: Dementia, present on admission. Active. - Baseline mentation is confused. - no treatment, avoid medication that may worsen confusion Hypothyroid - Continue home Synthroid 88 g daily. Acetaminophen for mild pain when necessary. Bowel regimen Senna and MiraLAX scheduled and PRN. Zofran when necessary for nausea and vomiting. SubQ heparin held for now. SCDs in place. Disposition: Patient will likely be in the hospital for 1-2 more days as she is treated for the above conditions and hospice is set up. Pain Evaluation: Adequate Pain Control VTE Prophylaxis: Sub-Q Heparin (Unfractionated) VTE Mechanical Devices: Intermittant Pneumatic CD Resuscitation Status: DNR/DNI:Do Not Resuscitate/Intubate Time spent 25 minutes Vikram Aguilar DO July 13, 2016 14:50
--- NOTE | 2016-07-13 15:17 | NUR ---
Social Work: Continued Discharge Planning D: Pt discussed in am rounds. Pt is not medically stable for discharge at this time. Pt receiving 2 more days of IV ABX and is currently on 40L of 02. Family is anticipating transitioning pt to comfort care after abx are completed. MERCHANDISE CARRIER spoke with [facility] who states that at this time the pt's 02 needs are too high to be managed by hospice at home. The patient has a tentative hospice intake scheduled for Sunday July 17, 2016 at 2:00pm if her oxygen needs are lower. A: Pt who is transitioning to comfort. P: Evolving; MERCHANDISE CARRIER to continue to follow. Pt to discharge home with [facility] when her oxygen needs are lower and can be managed at home. RENATE Malcolm
--- NOTE | 2016-07-13 17:58 | NUR ---
HR Pt's HR started to sustain above 100. BP 120/76 at rest. Administered 5mg IV Metoprolol which was due at 1430 but pt did not receive at that time due to HR below 100.
[2016-07-14] VITALS (10 sets, daily range): BP systolic 156; BP diastolic 85; PULSE 86–105; RESP 16–28; O2SAT 90–95
[2016-07-14] MEDS: Sodium Chloride LOK Flush 10 mL Syringe IVFLUSH SCH ×3 (00:30→16:30)
[2016-07-14] MEDS: Heparin 5,000 Unit/mL Inj SUBQ SCH ×2 (00:30→08:30)
[2016-07-14] MEDS: Meropenem Inj 1,000 MG in 0.9% Sodium Chloride 50 ML IV SCH ×2 (00:51→08:59)
[2016-07-14] MEDS: MeTOProlol 1 mg/mL 5 mL Inj IVPUSH SCH ×2 (02:30→08:59)
[2016-07-14] MEDS: Albuterol-Ipratropium 3 mL Inhalation Solution NEB SCH ×2 (05:04→10:01)
--- NOTE | 2016-07-14 06:12 | NUR ---
Activity/Respiratory/HR Pt had moments where she was restless and picking at the oxygen NC and the pt would quickly desat. Otherwise, pt was able to get rest. Pt SpO2 >90% on 2.5L NC. Pt's HR has remained 70s-90s with intermittent jumps into the 100s-120s. Pt does not sustain the higher HR and will have HR go back down into the 70s-90s.
[2016-07-14] MEDS: Tolterodine ER 4 mg ER24 Capsule PO SCH (08:30)
--- NOTE | 2016-07-14 13:08 | PROG NOTE ---
[address] [address] PROGRESS NOTE PATIENT: EMILY CREWS : 1930 MR#: [id number] ADMIT: 07/07/2016 JOB ID: [id number] DATE: 07/14/2016 REASON FOR FOLLOWUP: Aspiration pneumonia, respiratory failure, and dementia. INTERVAL HISTORY: Over the past 48 hours, the patient has continued to be quite lethargic and confused. There have been discussions between the hospitalist and the family as well as Palliative Care regarding how to pursue this case and the complex decision has been taken. Basically, the desire is to complete this course of broad-spectrum antibiotic aimed at treatment of aspiration pneumonia while also transitioning to hospice. This has involved not drawing blood for the last couple days which makes monitoring the patient more complex, while continuing to finish out a course of antibiotics and even, at times, to give supplemental IV fluids because of dehydration. This morning, the patient actually answers a few questions and tells me she feels well and is not short of breath. Beyond that, she is extremely lethargic and I cannot obtain any additional history. The nurse tells me she has been basically confused all day long and that was about her state on Friday as well, when I last saw her two days ago. PHYSICAL EXAMINATION: Reveals a chronically ill-appearing woman who looks short of breath. She is lying in her bed with some nasal oxygen. She has been afebrile. Her last temp 36.5, pulse in the 90s and irregular. Her respiratory rate 28-30 at this moment. She is saturating 92% on 2-3 L over the past 12 hours or so. The patient appears overall sicker than she did a couple days ago. As noted, she is very lethargic and when she answers questions, they are often at garbled or confused. Mucous membranes are dry. Lungs with scattered rales, right greater than left base. Cardiac tones are regular rate and rhythm. Abdomen is soft and without apparent tenderness. No skin rash noted. LAB SECTION: We have no labs since July 12. At that time, her white count had dropped to 11,000 from 26 and her procalcitonin had dropped from 17 down to 1.5. We do not have any labs the last couple days. The review of the culture shows no additional positive cultures and, in fact, we have no positive cultures in this case. Our last imaging was on July 12, a chest x-ray, which showed improving bibasilar air space opacities, perhaps consistent with improving pneumonia. IMPRESSION: Most likely explanation here is that the patient has an aspiration pneumonia complicating her underlying dementia, chronic obstructive pulmonary disease, and congestive heart failure. When last we measured, white count and procalcitonin were dramatically improved, though I do not have any laboratories the last couple days. I personally spoke to Dr. Aguilar this morning and he is equivocating on whether or not we should get additional laboratories as the family plans to transition to hospice as early as tomorrow, when her course of meropenem for aspiration pneumonia is complete, but of course, we are giving her intravenous fluids and antibiotics without knowledge of laboratories, which is a little nonstandard. This is obviously a complex and fluid situation. RECOMMENDATIONS: 1. I would continue meropenem through tomorrow morning and stop, as she would have received what we would consider a full course of therapy for aspiration pneumonia at that time. 2. If labs are to be drawn, I would check white count, procalcitonin, and creatinine and sodium, but of course, given the pending transition to hospice, this may not be desired as it would involve sticking the patient again and I would leave this decision to Dr. Aguilar and the patient's family. 3. ID will go ahead and sign off having written a stop order for meropenem for tomorrow morning.
--- NOTE | 2016-07-14 13:36 | PCM.PNMED ---
Subjective Date of Service July 14, 2016 Subjective This is an 85-year-old female lives at the adult care facility, [facility] with 24 hours care on [place] who is brought due to complaint of increasing weakness and decreased ambulation from baseline at lunchtime . Currently under treatment for sepsis with uncertain etiology of infection, worsening mentation, aspiration and HFrEF. Hospital day #8. Overnight: Patient continued to be confused and pull off her nasal canula. No acute events. Today: Discussed the patient with the patient's DPOA, her daughter, and we will be proceed with full comfort care until hospice can open. The patient was sleeping when evaluated. She awoke to touch and voice but did not answer any questions. Remainder review of systems is not obtainable due altered mentation. Exam Vital Signs Vital Sign - Last Date Time Temp Pulse Resp B/P Pulse Ox O2 Delivery O2 Flow Rate FiO2 07/14/16 12:00 97 17 91 Nasal Cannula 2.00 07/14/16 08:00 156/85 07/13/16 12:00 40 07/12/16 16:32 36.5 Intake and Output 07/13/16 07/13/16 07/14/16 Cumulative From/Thru 15:00 23:00 07:00 07/07/16 14:54 - 07/14/16 06:56 Intake Total 376 ml 5 ml 8544 ml Output Total 250 ml 225 ml 9250 ml Balance 126 ml -220 ml -706 ml Intake Oral 50 ml 5 ml 2115 ml IV Total 326 ml 6429 ml Output Urine Total 250 ml 225 ml 9250 ml # Voids 6 # Bowel Movements 0 0 Exam General: Alert, Cooperative, Moderate Distress, Other (patient is thin, during malnourished, lying in hospital bed and 2 point restraint. ) Mouth: Mucous Membranes Dry Chest & Lungs: Coarse breath sounds Cardiovascular: Exam Unremarkable Extremities: No cyanosis/clubbing/edma bilat Neurological: Other (baseline dementia otherwise nonfocal examination) IVs and Medications Medications Reviewed: Medications were reviewed in detail Lab and Diagnostics Result Diagram: 07/12/1692407/12/16924 Microbiology Legionella and S. Pneumo urine antigen negative Viral PCR negative X-Rays, CTs and MRIs CT ABDOMEN AND PELVIS WITH CONTRAST IMPRESSION: 1. Nonspecific periportal edema in the liver is likely reactive to an infectious or inflammatory process. 2. Diverticulosis without acute diverticulitis. 3. No evidence of intra-abdominal abscess. 4. Scattered small ground glass opacities within the visualized lung bases likely represent a mild infectious or inflammatory process including possible aspiration. Approved by: Fortunato Bryant M.D. on 07/07/2016 at 19:06 CT ANGIO CHEST PULMONARY EMBOLISM IMPRESSION: 1. No evidence of central pulmonary embolism with evaluation of subsegmental branches limited by motion artifact. 2. Small region of consolidation in the right lower lobe likely representing pneumonia. A few scattered small nodular opacities bilaterally also likely reflect an infectious or inflammatory process. 3. Moderate to severe centrilobular emphysematous changes. 4. Small bilateral pleural effusions with associated compressive atelectasis. 5. Mildly enlarged mediastinal lymph nodes are nonspecific but likely reactive. Dictated by: Fortunato Bryant M.D. on 07/07/2016 at 21:29 Cardiac Echo Impressions Interpretation Summary The left ventricle is grossly normal size.The ejection fraction is estimated to be 20-25%. There is moderate to severe global hypokinesis of the left ventricle. There is inferior wall akinesis. The right ventricle is grossly normal size. The right ventricular systolic function is normal. There is moderate to severe mitral regurgitation. There is moderate to severe tricuspid regurgitation.Right ventricular systolic pressure is estimated to be 39 mmHg plus the clinically estimated CVP which cannot be estimated on this exam. Assessment & Plan This is an 85-year-old female lives at the adult care facility, [facility] with 24 hours care on [place] who is brought due to complaint of increasing weakness and decreased ambulation from baseline at lunchtime . Currently under treatment for sepsis with uncertain etiology of infection. Hospital day #8. Acute hypoxemic and hypercapnic respiratory failure on chronic COPD secondary to acute HFrEF, not preset on admission, active -CT angiogram of chest negative for pulmonary embolism. Swallow eval showing possible aspiration. Likely chronic. CXR revealing of pulmonary edema -ECHO showing severe reduction in EF at 20% with severe TR -Transition to comfort care today based on discussion with daughter and POA and subsequent transfer to hospice early next week. -Morphine PRN dyspnea or pain. -Given discomfort of high flow nasal cannula, we will do everything possible to wean patient 2 more comfortable breathing apparatus, even if this should produce some degree of hypoxia which will be preferentially addressed with morphine rather than restarting more aggressive oxygenating therapies. This will hopefully accomplish the removal of patient's 2 point restraints which are causing significant distress and discomfort at this time. Encephalopathy, acute superimposed on chronic dementia, present on admission, active -Concern for possible encephalitis or meningitis in an altered patient complaining of headaches but CT negative for acute process. LP negative for infectious pathology. -ID consulted, appreciate input. -Worsening aspiration, patient has been made NPO -Comfort care. Will stop antibiotics. -Restraints as necessary but every attempt will be made to discontinue a conjunction with discontinuation of high flow oxygen. -Haldol PRN agitation. Sepsis, present on admission. Active. Improving. - Admission - Rectal temp 38.6, HR 112, RR 29, BP 131/49, LA 2.8. Procalcitonin 16.72. - Possible source of infection may be her foot wound. Foot x ray showing possible early osteo. MRI ordered but cannot be performed due to restrain use and now high flow. - Stopping antibiotics as patient is comfort care. Elevated Transaminases in hepatocellular pattern, present on admission, active. Improving. - AST/ALT 752/204 with AST:ALT >2:1 with nonspecific periportal edema in the liver, likely reactive to an infectious or inflammatory process. - Acetaminophen level was normal. No known history of EtOH use. Chronic conditions, present on admission: Dementia, present on admission. Active. Hypothyroid -Stop Synthroid, patient is on comfort care Acetaminophen for mild pain when necessary. Bowel regimen Senna and MiraLAX scheduled and PRN. Zofran when necessary for nausea and vomiting. Disposition: Patient will likely be in the hospital until Friday as hospice is set up. Resuscitation Status: DNR/DNI:Do Not Resuscitate/Intubate Time spent 25 minutes Attending Statement I have seen and evaluated patient at bedside in addition to directly supervising care provided by resident physician. I agree with above documentation Eva Blum DO July 14, 2016 12:58 Vikram Aguilar DO July 14, 2016 15:01
--- NOTE | 2016-07-14 18:14 | NUR ---
O2 needs Pt still on NC 2-2.5L when resting comfortably she is mid 90's. Frequent checks needed due to pt taking off NC and will desat to low 80's. Weak ineffective cough.
--- NOTE | 2016-07-14 21:29 | NUR ---
Transfer PT has been sleeping since she was received. No apparent distress and pt denies pain when awakened. PT is being transferred to [facility]. Report called to Case SCANLON.
--- NOTE | 2016-07-14 22:25 | NUR ---
Transfer Patient arrived to floor at 2144. Patient is resting in bed. 2L O2. Patient denies any pain. Trevino patent and draining. Comfort care. Report provided by Jocelyne SCANLON.
[2016-07-15] MEDS: Sodium Chloride LOK Flush 10 mL Syringe IVFLUSH SCH ×3 (01:09→15:22)
[2016-07-15] MEDS: Tolterodine ER 4 mg ER24 Capsule PO SCH (07:48)
[2016-07-15 08:33] VITALS: BP 116/74; PULSE 67; RESP 17
--- NOTE | 2016-07-15 11:42 | NUR ---
Social Work: Readiness for Discharge D: EMR reviewed. Pt is on day 8 of hospitalization. [facility] information visit completed 07/12 and consent forms signed by pt and DPOA. DIANE spoke with Jerrod from [facility] who confirmed that pt's 02 has dropped to 2 liters per minute. Hospice requires pt to be on 15 liters or less per minute. SW confirmed pt has reached goal of 2 liters per minute. SW confirmed pt has a tentative hospice intake scheduled 07/17 at 14:00. This is the earliest available intake date. Jerrod stated that [facility] may be able to open sooner if MD is wanting pt to discharge. DIANE will follow-up with MD, pt, and DPOA to determine discharge date. SW to update Jerrod on possible discharge date. SW will continue to follow. A: Pt for whom hospice has been deemed medically necessary. P: Pt to discharge home with [facility]. Pt has met O2 goal (per hospice) of 2 liters per minute. SW to update Jerrod ([phone]) with update on MD, pt, and DPOA plan for discharge date/time. Pt has a tentative hospice intake scheduled 07/17 at 14:00. DIANE will continue to follow. RENATE Palafox Addendum: 07/15/16 at 1252 by BONITA HOOD DIANE spoke with DPOA and MD. VERONICA thinks pt will prior to 07/17 or during transport home. DPROCHELLE requested pt stay at hospital to . came to visit pt for last rights while DIANE was discussing discharge plan with DPOA. DIANE spoke with MD regarding DPOA request for pt to stay in hospital to . MD will hold pt another 24 hours because pt is not medically stable to discharge at this time. DIANE spoke with Jerrod and [facility] and requested to hold pt's tentative intake date of 07/17 at 1400. Jerrod is aware that pt may prior to intake date but will hold intake appointment in the event pt is able to transport home. DIANE will continue to follow. RENATE Palafox
--- NOTE | 2016-07-15 12:13 | PCM.PNMED ---
Subjective Date of Service July 15, 2016 Subjective patient seems comfortable Exam Vital Signs Vital Sign - Last Date Time Temp Pulse Resp B/P Pulse Ox O2 Delivery O2 Flow Rate FiO2 07/15/16 08:33 36.4 67 17 116/74 Nasal Cannula 2.00 94 07/14/16 12:00 91 Intake and Output 07/14/16 07/14/16 07/15/16 Cumulative From/Thru 15:00 23:00 07:00 07/07/16 14:54 - 07/15/16 06:29 Intake Total 1361 ml 0 ml 9905 ml Output Total 200 ml 350 ml 9800 ml Balance 1161 ml -350 ml 105 ml Intake Oral 0 ml 0 ml 2115 ml IV Total 1361 ml 7790 ml Output Urine Total 200 ml 350 ml 9800 ml # Voids 6 # Bowel Movements 0 0 Exam General: Alert, Cooperative, Moderate Distress, Other (patient is thin, during malnourished, lying in hospital bed and 2 point restraint. ) Mouth: Mucous Membranes Dry Chest & Lungs: Coarse breath sounds Cardiovascular: Exam Unremarkable Extremities: No cyanosis/clubbing/edma bilat Neurological: Other (baseline dementia otherwise nonfocal examination) IVs and Medications Medications Reviewed: Medications were reviewed in detail Lab and Diagnostics Result Diagram: 07/12/1692407/12/16924 Microbiology Legionella and S. Pneumo urine antigen negative Viral PCR negative X-Rays, CTs and MRIs CT ABDOMEN AND PELVIS WITH CONTRAST IMPRESSION: 1. Nonspecific periportal edema in the liver is likely reactive to an infectious or inflammatory process. 2. Diverticulosis without acute diverticulitis. 3. No evidence of intra-abdominal abscess. 4. Scattered small ground glass opacities within the visualized lung bases likely represent a mild infectious or inflammatory process including possible aspiration. Approved by: Fortunato Bryant M.D. on 07/07/2016 at 19:06 CT ANGIO CHEST PULMONARY EMBOLISM IMPRESSION: 1. No evidence of central pulmonary embolism with evaluation of subsegmental branches limited by motion artifact. 2. Small region of consolidation in the right lower lobe likely representing pneumonia. A few scattered small nodular opacities bilaterally also likely reflect an infectious or inflammatory process. 3. Moderate to severe centrilobular emphysematous changes. 4. Small bilateral pleural effusions with associated compressive atelectasis. 5. Mildly enlarged mediastinal lymph nodes are nonspecific but likely reactive. Dictated by: Fortunato Bryant M.D. on 07/07/2016 at 21:29 Cardiac Echo Impressions Interpretation Summary The left ventricle is grossly normal size.The ejection fraction is estimated to be 20-25%. There is moderate to severe global hypokinesis of the left ventricle. There is inferior wall akinesis. The right ventricle is grossly normal size. The right ventricular systolic function is normal. There is moderate to severe mitral regurgitation. There is moderate to severe tricuspid regurgitation.Right ventricular systolic pressure is estimated to be 39 mmHg plus the clinically estimated CVP which cannot be estimated on this exam. Assessment & Plan This is an 85-year-old female lives at the adult care facility, [facility] with 24 hours care on [place] who is brought due to complaint of increasing weakness and decreased ambulation from baseline at lunchtime . Currently under treatment for sepsis with uncertain etiology of infection. Hospital day #8. # Acute hypoxemic and hypercapnic respiratory failure on chronic COPD secondary to acute HFrEF, not preset on admission, active -CT angiogram of chest negative for pulmonary embolism. Swallow eval showing possible aspiration. Likely chronic. CXR revealing of pulmonary edema -ECHO showing severe reduction in EF at 20% with severe TR -Transitioned to comfort care 07/14 based on discussion with daughter and POA and subsequent transfer to hospice early next week. -Morphine PRN dyspnea or pain. -Continue oxygen via nasal cannula, # Encephalopathy, acute superimposed on chronic dementia, present on admission, active -Concern for possible encephalitis or meningitis in an altered patient complaining of headaches but CT negative for acute process. LP negative for infectious pathology. -ID consulted, appreciate input. -Worsening aspiration, patient has been made NPO -Comfort care. stopped antibiotics. -Haldol PRN agitation. # Sepsis, present on admission. Active. Improving. - Admission - Rectal temp 38.6, HR 112, RR 29, BP 131/49, LA 2.8. Procalcitonin 16.72. - Possible source of infection may be her foot wound. Foot x ray showing possible early osteo. MRI ordered but cannot be performed due to restrain use and now high flow. - Stopping antibiotics as patient is comfort care. # Elevated Transaminases in hepatocellular pattern, present on admission, active. Improving. - AST/ALT 752/204 with AST:ALT >2:1 with nonspecific periportal edema in the liver, likely reactive to an infectious or inflammatory process. - Acetaminophen level was normal. No known history of EtOH use. Chronic conditions, present on admission: # Dementia, present on admission. Active. # Hypothyroid -Stop Synthroid, patient is on comfort care Acetaminophen for mild pain when necessary. Bowel regimen Senna and MiraLAX scheduled and PRN. Zofran when necessary for nausea and vomiting. Disposition: Patient will likely be in the hospital until Friday as hospice is set up. VTE Mechanical Devices: Intermittant Pneumatic CD Resuscitation Status: DNR/DNI:Do Not Resuscitate/Intubate Jose Cruz Ortiz MD July 15, 2016 12:13
--- NOTE | 2016-07-15 14:36 | NUR ---
Comfort care Pt minimally responsive. Morphine given prn for RR >20. Ativan given prn for restlessness. Hourly rounding and oral care at least q 2hours. Position changes only for comfort. Service Correspondent, family and friends in to visit.
[2016-07-16] MEDS: Sodium Chloride LOK Flush 10 mL Syringe IVFLUSH SCH ×3 (00:30→17:46)
--- NOTE | 2016-07-16 00:30 | NUR ---
Comfort Care Patient not responsive this evening. Morphine 2mg IVP administered for respirations at 30 along with Ativan 0.5mg IVP. Patient did open eyes for eye drops administration for a moment. Breathing is sporadic, ranging from 30-15. Oral care given. Will round on patient hourly.
[2016-07-16] MEDS: Tolterodine ER 4 mg ER24 Capsule PO SCH (07:14)
[2016-07-16 07:55] VITALS: RESP 28
[2016-07-16 10:32] VITALS: BP 135/80; PULSE 105; RESP 27; O2SAT 96
--- NOTE | 2016-07-16 15:14 | PCM.PNMED ---
Subjective Date of Service July 16, 2016 Subjective Patient consultation. Lethargic but Easily arousable. Exam Vital Signs Vital Sign - Last Date Time Temp Pulse Resp B/P Pulse Ox O2 Delivery O2 Flow Rate FiO2 07/16/16 10:32 36.7 105 27 135/80 96 Nasal Cannula 2.00 07/15/16 08:33 94 Intake and Output 07/15/16 07/15/16 07/16/16 Cumulative From/Thru 15:00 23:00 07:00 07/07/16 14:54 - 07/16/16 05:34 Intake Total 0 ml 0 ml 9905 ml Output Total 250 ml 250 ml 80315 ml Balance -250 ml -250 ml -395 ml Intake Oral 0 ml 0 ml 2115 ml IV Total 7790 ml Output Urine Total 250 ml 250 ml 95074 ml # Voids 6 # Bowel Movements 0 Exam General: Alert, Cooperative, Moderate Distress, Other (patient is thin, during malnourished, lying in hospital bed and 2 point restraint. ) Mouth: Mucous Membranes Dry Chest & Lungs: Coarse breath sounds Cardiovascular: Exam Unremarkable Extremities: No cyanosis/clubbing/edma bilat Neurological: Other (baseline dementia otherwise nonfocal examination) IVs and Medications Medications Reviewed: Medications were reviewed in detail Lab and Diagnostics Result Diagram: 07/12/1692407/12/16924 Microbiology Legionella and S. Pneumo urine antigen negative Viral PCR negative X-Rays, CTs and MRIs CT ABDOMEN AND PELVIS WITH CONTRAST IMPRESSION: 1. Nonspecific periportal edema in the liver is likely reactive to an infectious or inflammatory process. 2. Diverticulosis without acute diverticulitis. 3. No evidence of intra-abdominal abscess. 4. Scattered small ground glass opacities within the visualized lung bases likely represent a mild infectious or inflammatory process including possible aspiration. Approved by: Fortunato Bryant M.D. on 07/07/2016 at 19:06 CT ANGIO CHEST PULMONARY EMBOLISM IMPRESSION: 1. No evidence of central pulmonary embolism with evaluation of subsegmental branches limited by motion artifact. 2. Small region of consolidation in the right lower lobe likely representing pneumonia. A few scattered small nodular opacities bilaterally also likely reflect an infectious or inflammatory process. 3. Moderate to severe centrilobular emphysematous changes. 4. Small bilateral pleural effusions with associated compressive atelectasis. 5. Mildly enlarged mediastinal lymph nodes are nonspecific but likely reactive. Dictated by: Fortunato Bryant M.D. on 07/07/2016 at 21:29 Cardiac Echo Impressions Interpretation Summary The left ventricle is grossly normal size.The ejection fraction is estimated to be 20-25%. There is moderate to severe global hypokinesis of the left ventricle. There is inferior wall akinesis. The right ventricle is grossly normal size. The right ventricular systolic function is normal. There is moderate to severe mitral regurgitation. There is moderate to severe tricuspid regurgitation.Right ventricular systolic pressure is estimated to be 39 mmHg plus the clinically estimated CVP which cannot be estimated on this exam. Assessment & Plan This is an 85-year-old female lives at the adult care facility, [facility] with 24 hours care on [place] who is brought due to complaint of increasing weakness and decreased ambulation from baseline at lunchtime . Currently under treatment for sepsis with uncertain etiology of infection. Hospital day #8. # Acute hypoxemic and hypercapnic respiratory failure on chronic COPD secondary to acute HFrEF, not preset on admission, active -CT angiogram of chest negative for pulmonary embolism. Swallow eval showing possible aspiration. Likely chronic. CXR revealing of pulmonary edema -ECHO showing severe reduction in EF at 20% with severe TR -Transitioned to comfort care 07/14 based on discussion with daughter and POA and subsequent transfer to hospice early next week. -Morphine PRN dyspnea or pain. -Continue oxygen via nasal cannula, # Encephalopathy, acute superimposed on chronic dementia, present on admission, active -Concern for possible encephalitis or meningitis in an altered patient complaining of headaches but CT negative for acute process. LP negative for infectious pathology. -ID consulted, appreciate input. -Worsening aspiration, patient has been made NPO -Comfort care. stopped antibiotics. -Haldol PRN agitation. # Sepsis, present on admission. Active. Improving. - Admission - Rectal temp 38.6, HR 112, RR 29, BP 131/49, LA 2.8. Procalcitonin 16.72. - Possible source of infection may be her foot wound. Foot x ray showing possible early osteo. MRI ordered but cannot be performed due to restrain use and now high flow. - Stopping antibiotics as patient is comfort care. # Elevated Transaminases in hepatocellular pattern, present on admission, active. Improving. - AST/ALT 752/204 with AST:ALT >2:1 with nonspecific periportal edema in the liver, likely reactive to an infectious or inflammatory process. - Acetaminophen level was normal. No known history of EtOH use. Chronic conditions, present on admission: # Dementia, present on admission. Active. # Hypothyroid -Stop Synthroid, patient is on comfort care Acetaminophen for mild pain when necessary. Bowel regimen Senna and MiraLAX scheduled and PRN. Zofran when necessary for nausea and vomiting. Disposition: Patient will likely be in the hospital until Friday as hospice is set up. VTE Mechanical Devices: Intermittant Pneumatic CD Resuscitation Status: DNR/DNI:Do Not Resuscitate/Intubate Jose rCuz Ortiz MD July 16, 2016 15:14
--- NOTE | 2016-07-16 16:17 | NUR ---
Social Work- Continued D/C Planning Data & Assessment: EMR reviewed. Pt is on day 9 of hospitalization for generalized weakness, fever, rule out sepsis per H&P. Pt is stable at this time, comfort care continues. Per MD in rounds, pt is stable to discharge home with hospice. DIANE spoke with Jerrod at [facility] the who indicated that because pt was thought to be imminent, the pt's intake time was not held. DIANE spoke with pt's daughter Jolie Bro [phone] explaining situation. Jolie requested medical update from , SW facilitated this. Tomorrow morning, DIANE will contact [facility] to further explore urgent possibilities to open the patient with services. DIANE will continue to follow. Plan: SW to contact [facility] to explore urgent possibilities to open the patient with services. DIANE will continue to follow. RENATE Tatum
--- NOTE | 2016-07-16 17:52 | NUR ---
Comfort care Family at bedside intermittently. Position changes and oral care for comfort. Morphine prn. Radial pulse weak and irregular. RR 18-mid 20s and shallow. Trevino draining small amount dark urine.
[2016-07-16 21:50] VITALS: RESP 17
[2016-07-17] MEDS: Sodium Chloride LOK Flush 10 mL Syringe IVFLUSH SCH ×3 (00:30→16:13)
--- NOTE | 2016-07-17 01:48 | NUR ---
Comfort Care On initial assessment, patient' respirations were 14/minute. Oral care performed. Trevino draining to gravity with a small amount of anca colored urine. Morphine 2mg IVP administered. Care continues.
--- NOTE | 2016-07-17 07:16 | NUR ---
Note to [employer] Line Up Person Please call Lisseth-daughter in regards to discharging patient to Hospice . Daughter would like to wait until tomorrow.
[2016-07-17 08:01] VITALS: BP 125/77; PULSE 125; RESP 31; O2SAT 82
[2016-07-17] MEDS: Tolterodine ER 4 mg ER24 Capsule PO SCH (08:30)
--- NOTE | 2016-07-17 10:08 | PCM.PNMED ---
Subjective Date of Service July 17, 2016 Subjective Patient seems comfortable. Sleepy but easily arousable Exam Vital Signs Vital Sign - Last Date Time Temp Pulse Resp B/P Pulse Ox O2 Delivery O2 Flow Rate FiO2 07/17/16 08:01 37.8 125 31 125/77 82 Nasal Cannula 4.00 07/15/16 08:33 94 Intake and Output 07/16/16 07/16/16 07/17/16 Cumulative From/Thru 15:00 23:00 07:00 07/07/16 14:54 - 07/17/16 06:50 Intake Total 0 ml 0 ml 9905 ml Output Total 400 ml 250 ml 49210 ml Balance -400 ml -250 ml -1045 ml Intake Oral 0 ml 0 ml 2115 ml IV Total 7790 ml Output Urine Total 400 ml 250 ml 94815 ml # Voids 6 # Bowel Movements 0 0 Exam General: Lethargic but easily arousable, Moderate Distress, Mouth: Mucous Membranes Dry Chest & Lungs: Coarse breath sounds Cardiovascular: Exam Unremarkable Extremities: No cyanosis/clubbing/edma bilat Neurological: Other (baseline dementia otherwise nonfocal examination) IVs and Medications Medications Reviewed: Medications were reviewed in detail Lab and Diagnostics Result Diagram: 07/12/1692407/12/16924 Microbiology Legionella and S. Pneumo urine antigen negative Viral PCR negative X-Rays, CTs and MRIs CT ABDOMEN AND PELVIS WITH CONTRAST IMPRESSION: 1. Nonspecific periportal edema in the liver is likely reactive to an infectious or inflammatory process. 2. Diverticulosis without acute diverticulitis. 3. No evidence of intra-abdominal abscess. 4. Scattered small ground glass opacities within the visualized lung bases likely represent a mild infectious or inflammatory process including possible aspiration. Approved by: Fortunato Bryant M.D. on 07/07/2016 at 19:06 CT ANGIO CHEST PULMONARY EMBOLISM IMPRESSION: 1. No evidence of central pulmonary embolism with evaluation of subsegmental branches limited by motion artifact. 2. Small region of consolidation in the right lower lobe likely representing pneumonia. A few scattered small nodular opacities bilaterally also likely reflect an infectious or inflammatory process. 3. Moderate to severe centrilobular emphysematous changes. 4. Small bilateral pleural effusions with associated compressive atelectasis. 5. Mildly enlarged mediastinal lymph nodes are nonspecific but likely reactive. Dictated by: Fortunato Bryant M.D. on 07/07/2016 at 21:29 Cardiac Echo Impressions Interpretation Summary The left ventricle is grossly normal size.The ejection fraction is estimated to be 20-25%. There is moderate to severe global hypokinesis of the left ventricle. There is inferior wall akinesis. The right ventricle is grossly normal size. The right ventricular systolic function is normal. There is moderate to severe mitral regurgitation. There is moderate to severe tricuspid regurgitation.Right ventricular systolic pressure is estimated to be 39 mmHg plus the clinically estimated CVP which cannot be estimated on this exam. Assessment & Plan This is an 85-year-old female lives at the adult care facility, [facility] with 24 hours care on [place] who is brought due to complaint of increasing weakness and decreased ambulation from baseline at lunchtime . Currently under treatment for sepsis with uncertain etiology of infection. Hospital day #8. # Acute hypoxemic and hypercapnic respiratory failure on chronic COPD secondary to acute HFrEF, not preset on admission, active -CT angiogram of chest negative for pulmonary embolism. Swallow eval showing possible aspiration. Likely chronic. CXR revealing of pulmonary edema -ECHO showing severe reduction in EF at 20% with severe TR -Transitioned to comfort care 07/14 based on discussion with daughter and POA -Morphine PRN dyspnea or pain. -Continue oxygen via nasal cannula, # Encephalopathy, acute superimposed on chronic dementia, present on admission, active -Concern for possible encephalitis or meningitis in an altered patient complaining of headaches but CT negative for acute process. LP negative for infectious pathology. -ID consulted, appreciate input. -Worsening aspiration, patient has been made NPO -Comfort care. stopped antibiotics. -Haldol PRN agitation. # Sepsis, present on admission. Active. Improving. - Admission - Rectal temp 38.6, HR 112, RR 29, BP 131/49, LA 2.8. Procalcitonin 16.72. - Possible source of infection may be her foot wound. Foot x ray showing possible early osteo. MRI ordered but cannot be performed due to restrain use and now high flow. - Stopped antibiotics as patient is comfort care. # Elevated Transaminases in hepatocellular pattern, present on admission, active. - AST/ALT 752/204 with AST:ALT >2:1 with nonspecific periportal edema in the liver, likely reactive to an infectious or inflammatory process. - Acetaminophen level was normal. No known history of EtOH use. Chronic conditions, present on admission: # Dementia, present on admission. Active. # Hypothyroid -Stop Synthroid, patient is on comfort care Acetaminophen for mild pain when necessary. Bowel regimen Senna and MiraLAX scheduled and PRN. Zofran when necessary for nausea and vomiting. Disposition: Patient was scheduled to go home on hospice today /Friday . Hospice canceled opening her case today thinking her was imminent . Patient has been on comfort care for 3 days and does not seem to in the next 24-48h .will call hospice again to ask when they can take over VTE Mechanical Devices: Intermittant Pneumatic CD Resuscitation Status: DNR/DNI:Do Not Resuscitate/Intubate Jose Cruz Ortiz MD July 17, 2016 10:08
--- NOTE | 2016-07-17 10:29 | NUR ---
Social Work- Readiness for Discharge Data & Assessment: EMR reviewed. Pt is on day 10 of hospitalization for generalized weakness, fever, rule out sepsis per H&P. Pt is stable at this time, comfort care continues. Per MD in rounds, pt continues to be stable to discharge home with hospice. DIANE spoke with Jocelyne at [facility] who stated that the pt will be opening with hospice 18 JULY between 2 and 3 pm. Equipment germán be delivered tomorrow as the first delivery to [facility], likely arrive prior to noon. DIANE spoke with Cyndee, rewrite editor of [facility], who is agreeable to pt returning with hospice. DIANE provided contact information of Cyndee to Jocelyne at [facility]. DIANE left message with pt's daughter Jolie Bro [phone] notifying her of new open date. MD has been notified. Pt to discharge home to [facility] tomorrow with hospice to open between 2-3 pm, equipment to be delivered tomorrow prior to noon. DIANE will discuss transportation options with pt's daughter. DIANE will continue to follow. Assessment: Pt for whom Hospice is medically indicated. Plan: Pt to discharge home to [facility] tomorrow with hospice to open between 2-3 pm, equipment to be delivered tomorrow prior to noon. DIANE will discuss transportation options with pt's daughter. DIANE will continue to follow. RENATE Tatum Addendum: 07/17/16 at 1108 by GM CAREY SS T/C to Jocelyne at [facility] regarding IV meds vs. PO medication. confirmed that pt will be on PO medication at discharge. SW received order to arrange BLS transport for pt's discharge. DIANE spoke with pt's daughter Lisseth and Mitchell at the hospital regarding discharge tomorrow to [facility] to open with Hospice services. Daughter agreeable that although pt has been reviewed to meet medical criteria for BLS we cannot guarantee insurance will cover this transportation. Dtr stated understanding. Dtr agreeable to pt's discharge tomorrow if pt continues to be medical stable. DIANE will continue to follow. RENATE Tatum Addendum: 07/17/16 at 1339 by GM CAREY T/C from Jocelyne at [facility] stating that pt's open time has been changed to Noon. Pt will need to D/C by 11 am. DIANE updated and RN of this information. RENATE Tatum
--- NOTE | 2016-07-17 17:18 | NUR ---
Comfort Care Pt. through out shift has not been verbal and does not appear in distress through facial gestures. Respiration fluctuates between low 20s-low 30s. Pt. was given morphine IV push PRN x2 on shift and it seems to decrease her respirations back to low 20s. Pt. at this time appears in no distress. Will continue to monitor.
[2016-07-18] MEDS: Sodium Chloride LOK Flush 10 mL Syringe IVFLUSH SCH (00:19)
--- NOTE | 2016-07-18 02:57 | NUR ---
Patient noted to have around 0220. Verified with tank charger. Notified daughter, Jolie, via telephone conversation. Per Jolie, she would not be coming in and patient is to go to [facility]. Notified night hospitalist, Dr. Bledsoe. Notified nursing patrol supervisor, and per patrol supervisor, no need to notify [facility] tonight, and they will call later in AM. Glasses, blanket, and rest of belongings sent down to [facility] with patient and labeled with ID sticker. IV and Trevino removed. Body cleaned. Two copies of paperwork sent down with body to [facility]. Donor referral service already called previously and patient is not a suitable donor.
--- NOTE | 2016-07-18 14:04 | PCM.DC.MEX ---
Discharge Summary Date of Service July 18, 2016 Dates of Hospitalization Date of Hospital Admission July 07, 2016 at 18:30 Date of Expiration: July 18, 2016 Time of Expiration: 02:20 Providers: Admitting Physician: Emery Boland MD Primary Care Physician: Tamela Torres PA-C Attending Physician: Emery Boland MD Diagnosis at Time of # Acute hypoxemic and hypercapnic respiratory failure due to acute on chronic COPD and acute on chronic HFrEF, not preset on admission, # Encephalopathy, acute superimposed on chronic dementia, present on admission, # Sepsis, present on admission. # Elevated Transaminases in hepatocellular pattern, present on admission, Chronic conditions, present on admission: # Dementia, present on admission. # Hypothyroid Consultations ID Dr montoya Procedures XRay, CTs & MRIs CT ABDOMEN AND PELVIS WITH CONTRAST IMPRESSION: 1. Nonspecific periportal edema in the liver is likely reactive to an infectious or inflammatory process. 2. Diverticulosis without acute diverticulitis. 3. No evidence of intra-abdominal abscess. 4. Scattered small ground glass opacities within the visualized lung bases likely represent a mild infectious or inflammatory process including possible aspiration. Approved by: Fortunato Bryant M.D. on 07/07/2016 at 19:06 CT ANGIO CHEST PULMONARY EMBOLISM IMPRESSION: 1. No evidence of central pulmonary embolism with evaluation of subsegmental branches limited by motion artifact. 2. Small region of consolidation in the right lower lobe likely representing pneumonia. A few scattered small nodular opacities bilaterally also likely reflect an infectious or inflammatory process. 3. Moderate to severe centrilobular emphysematous changes. 4. Small bilateral pleural effusions with associated compressive atelectasis. 5. Mildly enlarged mediastinal lymph nodes are nonspecific but likely reactive. Dictated by: Fortunato Bryant M.D. on 07/07/2016 at 21:29 Cardiac Echo Impression Interpretation Summary The left ventricle is grossly normal size.The ejection fraction is estimated to be 20-25%. There is moderate to severe global hypokinesis of the left ventricle. There is inferior wall akinesis. The right ventricle is grossly normal size. The right ventricular systolic function is normal. There is moderate to severe mitral regurgitation. There is moderate to severe tricuspid regurgitation.Right ventricular systolic pressure is estimated to be 39 mmHg plus the clinically estimated CVP which cannot be estimated on this exam. Brief History per HPI This is an 85-year-old female lives at the adult care facility, [facility] with 24 hours care on [place] who is brought due to complaint of increasing weakness and decreased ambulation from baseline at lunchtime . Patient has no specific complaint but appears ill. She been a bleeding up until 2 days ago, when she saw urologist and had her oxybutynin switched over, and started on Tolterodine friday. She has dementia and is confused at baseline. She is otherwise fully functional with very little help with ambulating, feeding, and toileting. History of COPD, on 2 L nocturnal O2 with Albuterol and Flovent at home. In the ED she was febrile, tachypnic, and tachycardia 38.7 rectal temp, 29 RR and 113 HR. She had an elevated LA of 2.8 and 2.5 after [address] She [address] abd w/con that showed only perihepatic edema (gallbladder absent.) Blood cx x2 and was started on IV Meropenem, and transferred to the [facility]. Hospital Course This is an 85-year-old female lives at the adult care facility, [facility] with 24 hours care on [place] who is brought due to complaint of increasing weakness and decreased ambulation from baseline at lunchtime . Currently under treatment for sepsis with uncertain etiology of infection. Hospital day #8. # Acute hypoxemic and hypercapnic respiratory failure due to acute on chronic COPD and acute on chronic HFrEF -CT angiogram of chest negative for pulmonary embolism. Swallow eval showing possible aspiration. Likely chronic. CXR revealing of pulmonary edema -ECHO showing severe reduction in EF at 20% with severe TR -Transitioned to comfort care 07/14 based on discussion with daughter and POA -Treated with Morphine PRN dyspnea or pain. -Treated with oxygen via nasal cannula, Patient on comfort care # Encephalopathy, acute superimposed on chronic dementia, present on admission, -Concern for possible encephalitis or meningitis in an altered patient complaining of headaches but CT negative for acute process. LP negative for infectious pathology. -Comfort care. stopped antibiotics. -Treated with Haldol PRN agitation. # Sepsis, present on admission. Active. Improving. - Admission - Rectal temp 38.6, HR 112, RR 29, BP 131/49, LA 2.8. Procalcitonin 16.72. - Possible source of infection may be her foot wound. Foot x ray showing possible early osteo. MRI ordered but could not be performed due to restrain use and high flow. - Stopped antibiotics as patient was comfort care. # Elevated Transaminases in hepatocellular pattern, present on admission, - AST/ALT 752/204 with AST:ALT >2:1 with nonspecific periportal edema in the liver, likely reactive to an infectious or inflammatory process. - Acetaminophen level was normal. No known history of EtOH use. Chronic conditions, present on admission: # Dementia, present on admission. # Hypothyroid -Stopped Synthroid, patient is on comfort care Patient in hospital on 07/18/16 at 2:20 AM Exam Test 07/07/16 15:10 07/07/16 15:38 07/07/16 16:30 07/07/16 18:20 Troponin T < 0.010ug/L (0.0-0.011) Lipase 20U/L (13-60) Thyroid Stimulating Hormone (TSH) 0.465uIU/mL (0.450-4.500) Prothrombin Time 10.5sec (8.1-12.5) Prothromb Time International Ratio 0.98ratio D-Dimer 6.08mg/L FEU (<0.50) Urine Color Yellow (YELLOW) Urine Appearance Clear (CLEAR,HAZY) Urine pH 6.0 (5.0-8.0) Urine Specific Gill 1.015 (1.003-1.035) Urine Protein Tracemg/dL (NEG,TRACE) Urine Glucose (UA) Negativemg/dL (NEGATIVE) Urine Ketones Negativemg/dL (NEGATIVE) Urine Occult Blood Negative (NEGATIVE) Urine Nitrite Negative (NEGATIVE) Urine Bilirubin Negative (NEGATIVE) Urine Urobilinogen Normalmg/dL (NORMAL) Urine Leukocyte Esterase Negative (NEGATIVE) Urine RBC 0-2/hpf (0-2) Urine WBC 0-5/hpf (0-5) Urine Epithelial Cells Moderate/hpf (NONE-MOD) Urine Crystals None seen (NONE SEEN) Urine Bacteria Few/hpf (NONE-FEW) Urine Hyaline Casts None/lpf (NONE) Urine Granular Casts None seen (NONE SEEN) Urine Waxy Casts None seen (NONE SEEN) Urine Red Blood Cell Casts None seen (NONE SEEN) Urine White Blood Cell Casts None seen (NONE SEEN) Urine Mucus Present (None Seen) Urine Trichomonas None seen (NONE SEEN) Urine Yeast None (NONE SEEN) Urinalysis Comment None Urine Culture Reflexed Not indicated Urine Legionella pneumophilia Ag Negative (Negative) Acetaminophen Level < 15.0ug/mL Rx (10-25) Test 07/07/16 21:20 07/08/16 03:30 07/08/16 10:48 07/09/16 16:30 Hold [place] Top Tube Received (Received) Lactic Acid Level 1.4mmol/L (0.4-2.0) Cryptococcus Antigen Negative (Negative) TB Test (QFT) Gold In Tube Indeterminate (Negative) TB Test (QFT) Incubation Comment (.) TB Test (QFT) Mitogen 0.09IU/mL (.) TB Test (QFT) Antigen 0.06IU/mL (.) TB Test (QFT) Antigen Minus Nil <0.00IU/mL (.) TB Test (QFT) TB - Nil 0.09IU/mL (.) TB Test (QFT) Positive Criteria Comment (.) TB Test (QFT) Interpretation Comment (.) CSF Appearance Clear (CLEAR) CSF Color Colorless (COLORLESS) CSF WBC 4/mm3 (0-5) CSF RBC 1/mm3 CSF Mononuclear WBCs % CSF Polynuclear WBCs % CSF Other Cells CSF Glucose 88mg/dL (45-90) CSF Total Protein 67mg/dL (15-45) Test 07/11/16 08:30 07/12/16 09:25 Procalcitonin 1.51ng/mL (0.00-0.08) White Blood Count 11.8th/mm3 (3.8-10.1) Red Blood Count 4.67mil/mm3 (3.90-5.20) Hemoglobin 14.3g/dL (12.0-15.6) Hematocrit 44.3% (35.0-46.0) Mean Corpuscular Volume 94.9fL (81-100) Mean Corpuscular Hemoglobin 30.6pg (27.0-35.0) Mean Corpuscular Hemoglobin Concent 32.3% (32.0-37.0) Red Cell Distribution Width 13.7% (12.3-15.4) Platelet Count 221bil/L (150-400) Neutrophils (%) (Auto) 78.3% (40-74) Lymphocytes (%) (Auto) 12.3% (14-46) Monocytes (%) (Auto) 8.4% (4-12) Eosinophils (%) (Auto) 0.3% (0-5) Basophils (%) (Auto) 0.3% (0-3) Sodium Level 154mEq/L (134-144) Potassium Level 2.7mEq/L (3.5-5.2) Chloride Level 102mEq/L (97-108) Carbon Dioxide Level 37mmol/L (18-29) Blood Urea Nitrogen 34mg/dL (8-27) Creatinine 0.44mg/dL (0.57-1.00) Estimat Glomerular Filtration Rate 195mL/min (>59) Glucose Level 138mg/dL (60-99) Calcium Level 9.5mg/dL (8.5-10.1) Magnesium Level 2.2mg/dL (1.6-2.6) Total Bilirubin 0.7mg/dL (0.0-1.2) Aspartate Amino Transf (AST/SGOT) 26U/L (0-50) Alanine Aminotransferase (ALT/SGPT) 76U/L (0-32) Alkaline Phosphatase 126U/L (25-165) Total Protein 6.5g/dL (6.4-8.4) Albumin 3.5g/dL (3.4-5.0) Microbiology Results Legionella and S. Pneumo urine antigen negative Viral PCR negative Time spent 35 minutes copies to: Tamela Torres PA-C, Melaku MD July 18, 2016 14:04
== END 2016-07-18 02:20 | disposition expired | DRG 871 ==
LOC: SED 14:24 → EDBD 14:24 → MPC 18:30 → PCC 20:05 → OSC 07-14 22:08
PROVIDERS: ADMIT Internal Medicine; ATTEND Internal Medicine
PROC: 4A033R1 Measurement of Arterial Saturation, Peripheral, Percutaneous Approach (ICD-10-PCS; principal; 2016-07-07)
PROC: 009U3ZX Drainage of Spinal Canal, Percutaneous Approach, Diagnostic (ICD-10-PCS; 2016-07-09)
DX: A41.9 Sepsis, unspecified organism (principal); J69.0 Pneumonitis due to inhalation of food and vomit; J96.01 Acute respiratory failure with hypoxia; J96.02 Acute respiratory failure with hypercapnia; I50.21 Acute systolic (congestive) heart failure; G93.40 Encephalopathy, unspecified; E87.2 Acidosis; M86.172 Other acute osteomyelitis, left ankle and foot; J44.9 Chronic obstructive pulmonary disease, unspecified; F03.90 Unspecified dementia, unspecified severity, without behavioral disturbance, psychotic disturbance, mood disturbance, and anxiety; E03.9 Hypothyroidism, unspecified; K21.9 Gastro-esophageal reflux disease without esophagitis; Z87.891 Personal history of nicotine dependence; Z66 Do not resuscitate; R51 Headache